=== PATIENT | female | born 1970 | race Caucasian/White ===

== ENCOUNTER 2017-06-26 19:38 | Outpatient (CLI) | payer MEDICARE, MEDICAID ==
--- NOTE | 2017-06-26 22:18 | Ultrasound Preliminary Report ---
Exam: US Duplex Ext Veins Right IMPRESSION: 1. Negative for deep venous thrombosis at this time. 2. Lymphadenopathy. RADIA The above findings were discussed with Dr. Garcia by Dr. Harsha Perez at 22:16 hrs on 06/26/17. SITE ID: [id number]
--- NOTE | 2017-06-26 22:20 | Ultrasound Report ---
EXAM: RIGHT UPPER EXTREMITY VENOUS ULTRASOUND EXAM DATE: 06/26/2017 08:56 PM. CLINICAL HISTORY: Metastatic breast cancer. Right upper extremity swelling. COMPARISON: None. TECHNIQUE: Real-time sonographic vascular imaging was performed by the enrollment processor through the upper extremity utilizing both color-flow and Doppler spectral analysis. Multiple ambulatory services representative static ani ges were saved for review. FINDINGS: Internal Jugular Vein (IJV): Normal. Subclavian Vein (SCV): Normal. Axillary Vein : Normal. Cephalic Vein (superficial vein): Normal. Basilic Vein (superficial vein): Normal. Brachial Vein: Normal. Contralateral Side: Subclavian Vein: Not evaluated. Other: Multiple irregular, hypoechoic, enlarged lymph nodes in the right neck, right axilla, and righ t supraclavicular region. These measure as much as 1.6 x 1.8 cm. IMPRESSION: 1. Negative for deep venous thrombosis at this time. 2. Lymphadenopathy. RADIA The above findings were discussed with Dr. Garcia by Dr. Harsha Perez at 22:16 hrs on 06/26/17. Referring Provider Line: [phone] SITE ID: [id number]
== END 2017-06-26 19:39 | disposition home or self-care (01) ==
LOC: DI 19:38
PROVIDERS: ATTEND Physician Assistant Medical
DX: R59.0 Localized enlarged lymph nodes (principal)

== ENCOUNTER 2017-07-23 17:44 | Inpatient (IN) | payer MEDICARE, MEDICAID ==
--- NOTE | 2017-07-23 19:43 | ED Physician Documentation ---
PD HPI SKIN - Stated complaint Stated Complaint: R ARM LUMP - Chief complaint Chief Complaint: Ext Problem - History obtained from History obtained from: Patient - History of Present Illness Timing - onset: Yesterday Timing - duration: Days (2) Timing - details: Gradual onset, Still present (worsened very quickly today though) Location: Chest, RUE Quality / character: Painful, Discolored (red), Swelling. No: Draining Associated symptoms: Myalgias. No: Fever, N/V/D Contributing factors: No: Recent illness Similar symptoms before: Has not had sx before Recently seen: Clinic (today) Review of Systems Constitutional: reports: Myalgias. denies: Fever, Chills Nose: denies: Rhinorrhea / runny nose, Congestion Throat: denies: Sore throat Respiratory: denies: Cough GI: denies: Abdominal Pain, Nausea, Vomiting, Diarrhea Musculoskeletal: reports: Extremity swelling (right arm lymphedema chronically since breast/axillary surgery for breast cancer.) Neurologic: denies: Focal weakness, Numbness Immunocompromised: reports: Immunocompromised (hormonal chemo at this point; no immune suppressants per se for past 4-5 months.) PD PAST MEDICAL HISTORY - Past Medical History Past Medical History: Yes Respiratory: None Neuro: None Endocrine/Autoimmune: None 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 Other Past Medical History: breast cancer with mets - Past Surgical History Past Surgical History: Yes - Present Medications Home Medications: Ambulatory Orders Medication Instructions Recorded Confirmed Everolimus [Afinitor] 10 mg PO DAILY 07/23/17 07/23/17 Exemestane 25 mg PO DAILY 07/23/17 07/23/17 Lisinopril 40 mg PO DAILY 07/23/17 07/23/17 Trastuzumab [Herceptin] 150 mg IV 07/23/17 - Allergies Allergies/Adverse Reactions: Allergies Allergy/AdvReac Type Severity Reaction Status Date / Time No Known Drug Allergies Allergy Verified 07/23/17 17:49 - Social History Does the pt smoke?: No Smoking Status: Never smoker Does the pt drink ETOH?: No Does the pt have substance abuse?: No - Family History Family history: reports: Non contributory PD ED PE NORMAL - Vitals Vital signs reviewed: Yes - General General: Alert and oriented X 3, No acute distress, Well developed/nourished - HEENT HEENT: Moist mucous membranes, Pharynx benign - Neck Neck: Supple, no meningeal sign, No adenopathy - Cardiac Cardiac: RRR, No murmur - Respiratory Respiratory: Clear bilaterally - Abdomen Abdomen: Soft, Non tender - Derm Derm: Warm and dry, Other (right arm with edema c/w lymphedema from shoulder down to fingers. There is marked redness c/w cellulitis right upper arm medially from elbow flexion up to anterior shoulder and axillary area, then to anterolateral chest wall and right breast. There is firmmness of tissue right breast which she says is c/w her tumor. No obvious fluctuance area to denote abscess. ) - Extremities Extremities: No tenderness to palpate, Normal ROM s pain - Neuro Neuro: Alert and oriented X 3, No motor deficit, No sensory deficit, Normal speech Results - Vitals Vitals: Vital Signs - 24 hr 07/23/17 07/23/17 07/23/17 17:46 21:05 22:59 Temperature 36.1 C L 36.9 C 36.6 C Heart Rate 102 H 98 98 Respiratory 18 16 20 Rate Blood Pressure 144/91 H 148/64 H 158/79 H O2 Saturation 99 99 100 Oxygen O2 Source Room air - Labs Labs: Laboratory Tests 07/23/17 07/23/17 07/23/17 20:47 21:24 21:24 WBC 4.4 L RBC 4.60 Hgb 11.5 L Hct 35.5 L MCV 77.1 L MCH 25.0 L MCHC 32.5 RDW 17.1 H Plt Count 103 L MPV 8.3 Neut # 3.6 Lymph # 0.5 L Dixon # 0.3 Eos # 0.0 Baso # 0.1 Absolute Nucleated RBC 0.01 Nucleated RBCs 0.2 ESR 68 H Sodium 134 L Potassium 2.9 L Chloride 99 L Carbon Dioxide 25 Anion Gap 10.0 BUN 14 Creatinine 0.9 Estimated GFR (MDRD) 67 L Glucose 332 H Calcium 8.7 Total Bilirubin 0.9 AST 36 ALT 74 H Alkaline Phosphatase 85 Total Creatine Kinase 111 Total Protein 7.0 Albumin 3.8 Globulin 3.2 Albumin/Globulin Ratio 1.2 Lipase 43 PD MEDICAL DECISION MAKING - ED course Complexity details: reviewed results, considered differential, d/w patient, d/w transportation consultant (Hospitalist) Departure - Departure Disposition: [facility] DC/Xfer Clinical Impression: Cellulitis of chest wall, Cellulitis of right arm, Lymphedema of right arm, Hypokalemia Condition: Stable Record reviewed to determine appropriate education?: Yes
[2017-07-23] MEDS ORDERED: VANCOMYCIN INJ 1 GM in SODIUM CHLORIDE 0.9% 250 ML IV STA (20:47)
[2017-07-23] MEDS ORDERED: SODIUM CHLORIDE 0.9% 1,000 ML IV ONE (20:47)
[2017-07-23] MEDS ORDERED: ceFAZolin 2 GM/50 ML 50 ML IV ONE ×2 (20:47→21:21)
[2017-07-23] MEDS ORDERED: VANCOMYCIN 1 GM VIAL ONE (21:21)
[2017-07-23 21:37] LABS: BASOPHILS # (AUTO) 0.1 10^3/uL (0.0-0.1); BASOPHILS % (AUTO) 1.4 %; HCT - HEMATOCRIT 35.5 % (37.0-47.0); HGB - HEMOGLOBIN 11.5 g/dL (12.0-16.0); LYMPHOCYTES # (AUTO) 0.5 10^3/uL (1.5-3.5); LYMPHOCYTES % (AUTO) 10.3 %; MEAN CORPUSCULAR HGB CONC 32.5 g/dL (32.0-36.0); MEAN CORPUSCULAR VOLUME 77.1 fL (81.0-99.0); MEAN PLATELET VOLUME 8.3 fL (7.9-10.8); MONOCYTES # (AUTO) 0.3 10^3/uL (0.0-1.0); MONOCYTES % (AUTO) 6.4 %; NEUTROPHILS # (AUTO) 3.6 10^3/uL (1.5-6.6); NEUTROPHILS % (AUTO) 80.9 %; NUCLEATED RED BLOOD CELLS AUTO 0.2 /100WBC; RED CELL DISTRIBUTION WIDTH 17.1 % (12.0-15.0); UNCORRECTED WHITE BLOOD COUNT 4.4 x10^3/uL; WHITE BLOOD COUNT 4.4 x10^3/uL (4.8-10.8)
[2017-07-23 21:45] LABS: ALBUMIN/GLOBULIN RATIO 1.2 (1.0-2.2); BILIRUBIN,TOTAL 0.9 mg/dL (0.2-1.0); CALCIUM 8.7 mg/dL (8.5-10.3); CREATININE 0.9 mg/dL (0.4-1.0); POTASSIUM 2.9 mmol/L (3.5-5.0)
[2017-07-23] MEDS ORDERED: POTASSIUM BICARB 25 MEQ TABLET PO STA (22:42)
[2017-07-23] MEDS ORDERED: POTASSIUM CHLOR 10 MEQ/100 ML 100 ML IV ONE (22:42)
[2017-07-23] MEDS ORDERED: IOPAMIDOL-300 100 ML VIAL ONE (23:08)
[2017-07-23] MEDS ORDERED: POTASSIUM BICARB 25 MEQ TABLET PO ONE (23:15)
[2017-07-23] MEDS ORDERED: IOPAMIDOL-300 100 ML VIAL IVP ONE (23:43)
--- NOTE | 2017-07-24 00:01 | CT Preliminary Report ---
Exam: CT Chest W/ IMPRESSION: 1. Mildly lobular advanced skin thickening of the right breast with multiple breast nodules, right ax illary lymphadenopathy, and with medial thickening extending posterior to the sternum and across the midline. 2. No sign of bone invasion, abscess, or fluid collection. 3. Splenomegaly. RADIA SITE ID: [id number]
--- NOTE | 2017-07-24 00:04 | CT Report ---
EXAM: CT CHEST EXAM DATE: 07/23/2017 11:48 PM. CLINICAL HISTORY: Right chest cellulitis/tumor. Concern for abscess. COMPARISONS: None. TECHNIQUE: Routine helical CT imaging was performed through the chest. IV contrast: 100 cc of Isovue- 300. Reconstructions: Coronal and sagittal. In accordance with CT protocol optimization, one or more of the following dose reduction techniques w ere utilized for this exam: automated exposure control, adjustment of mA and/or KV based on patient s ize, or use of iterative reconstructive technique. FINDINGS: Lungs/Pleura: No nodules, bronchial thickening, consolidation, or edema. Pulmonary vasculature is nor mal. No pericardial or pleural effusion. No pneumothorax. Mediastinum: Normal. No adenopathy or masses. The heart and great vessels are normal. Bones: Unremarkable. Visualized Abdomen: Splenomegaly noted. Other: Right axillary adenopathy, largest 3.2 x 3.8 cm. Diffuse irregular right breast skin thickenin g, with multiple right breast nodules. Thickening extends across the midline and extends posteriorly to abut the sternum. Subcutaneous nodule to the right of midline inferior to the breast 1.7 cm size. No sign of bone invasion. No fluid collection to suggest abscess. IMPRESSION: 1. Mildly lobular advanced skin thickening of the right breast with multiple breast nodules, right ax illary lymphadenopathy, and with medial thickening extending posterior to the sternum and across the midline. 2. No sign of bone invasion, abscess, or fluid collection. 3. Splenomegaly. RADIA Referring Provider Line: [phone] SITE ID: [id number]
[2017-07-24] MEDS ORDERED: POTASSIUM CHLOR 10 MEQ/100 ML 100 ML IV SCH (00:12)
[2017-07-24] MEDS ORDERED: POTASSIUM CHLORIDE 20 MEQ TABLET PO SCH (00:12)
[2017-07-24] MEDS ORDERED: ACETAMINOPHEN 325 MG TABLET PO PRN (00:14)
[2017-07-24] MEDS ORDERED: SODIUM CHLORIDE FLUSH 0.9% 10 ML SYRINGE IVP PRN (00:14)
[2017-07-24] MEDS ORDERED: ZOLPIDEM 5 MG TABLET PO PRN (00:14)
[2017-07-24] MEDS ORDERED: MORPHINE 2 MG/ML SYRINGE IVP PRN (00:14)
[2017-07-24] MEDS ORDERED: ONDANSETRON 4 MG/2 ML VIAL IVP PRN (00:14)
[2017-07-24] MEDS: oxyCODONE 5 MG TABLET PO PRN ×4 (01:23→17:58)
[2017-07-24] MEDS: PIPERACILLIN/TAZOBACTAM 3.375 GM in SODIUM CHLORIDE 0.9% MINIBAG 100 ML IV SCH ×4 (01:45→18:01)
--- NOTE | 2017-07-24 01:46 | HISTORY & PHYSICAL EXAMINATION ---
DATE OF ADMISSION: 07/24/2017 Please note that I saw the patient and completed history and physical prior to midnight. CHIEF COMPLAINT: Sent by the oncologist with right arm cellulitis. HISTORY OF PRESENT ILLNESS: The patient is a pleasant 46-year-old white female with past medical history of advanced metastatic breast cancer which metastasized to the bone, in particular patient has a pathologic left femoral fracture requiring femoral ifeanyi placement. She has metastatic lesions in the ribs and in the pelvic bones as well. Her disease is complicated by a necrotic ulcerating tumor mass on the right side of her chest. She does have axillary lymphadenopathy and chronic right arm lymphedema. The patient was diagnosed with the cancer about 4-1/2 years ago and since then she had received chemotherapy, hormone therapy and radiation therapy as well. Most recently she had been on hormone therapy and radiation is planned. From what she tells me it seems that she is on a chemotherapy holiday. The patient was in her usual state of health up to the morning of 07/23/2017. After she woke up, she noticed that her right arm was much more swollen than usual. It was painful and inflamed, erythematous. Hot to the touch. She did not have fever, but did have chills. She had nausea as well. She has some chronic chemotherapy-related rash like lesions on her abdominal wall which did not change. She does have the above-mentioned ulcerating tumor mass on her chest wall. She describes that she uses metronidazole sprinkles on it, but she does not take any oral antibiotic and she has not taken antibiotics from what she remembers. She was told that the chest wounds are secondary to the necrotic tumor tissue but were not infected. She did receive wound care in the past but most recently had been performing her own wound care. Upon presentation to the ER, the patient was found with obvious right arm cellulitis and the above-mentioned necrotic tumor mass on her chest. She underwent CT scan which did not show drainable collection or abscess. She had laboratory abnormalities, which included pancytopenia, hypokalemia with potassium of 2.9 and hyperglycemia with glucose of 332. PAST MEDICAL HISTORY: 1. Hypertension, on lisinopril. 2. Pancytopenia secondary to chemotherapy. 3. History of anemia, even before tumor diagnosis and chemotherapy the patient was anemic. 4. A complicated history of metastatic breast cancer. Please see details listed above at History of Present Illness. 5. Recent history of hyperglycemia. The patient tells me that one of the chemotherapy agents she was receiving causes hyperglycemia. She does not carry the diagnosis of diabetes. OUTPATIENT MEDICATIONS: Included lisinopril, everolimus, and exemestane. ALLERGIES: NO KNOWN DRUG ALLERGIES. SOCIAL HISTORY: The patient does not smoke, does not drink. CODE STATUS IS FULL CODE. FAMILY HISTORY: Negative for breast cancer, positive for hemophilia. REVIEW OF SYSTEMS: Please see pertinent positives listed above at History of Present illness. The patient did not report additional complaint on the 12- point review. PHYSICAL EXAMINATION: VITAL SIGNS: Temperature 36.9, heart rate between 80 and 100, blood pressure 140 /80, oxygen saturation 100% on room air, respiratory rate between 16 and 20. GENERAL: The patient is a well developed young female who was not in distress. SKIN: Extensive necrotic mass on the middle of the chest extending to the right side and extensive right arm cellulitis involving the entire arm with significant right arm lymphedema. NEURO: Neurologically alert, oriented, nonfocal. PSYCH: Cooperative. HEART: S1, S2. No pathologic murmur. RESPIRATORY: Clear to auscultation bilaterally. ABDOMEN: Obese, benign. Skin rash on the abdominal wall. Bowel tones present. MUSCULOSKELETAL: Obesity. LYMPH: Right arm lymphedema. ASSESSMENT: 1. Acute right arm cellulitis. 2. Chronic right arm lymphedema; however, recently getting worse. The patient has axillary lymphadenopathy and right-sided breast cancer. 3. Hypokalemia. 4. Hyperglycemia. 5. Pancytopenia, likely secondary to chemotherapy. 6. Immunocompromised status secondary to advanced cancer and recent chemotherapy. 7. Ulcerating tumor mass on the chest wall. Will require wound care, could be infected as well. PLAN AND ORDERS: The patient is getting admitted under inpatient status, she has significant laboratory abnormalities, plus she has impressive cellulitis and will require IV antibiotic therapy. Given her immunocompromised status she has risk to get worse if she is not treated promptly and broadly. Zosyn. MRSA screen, if positive will give vancomycin. Of note, the patient did receive 1 dose of vancomycin in the ER. Wound care, wound cultures. Regarding hyperglycemia, will start coverage on insulin sliding scale, diabetic diet and will check hemoglobin A1c. Replace potassium, both orally and IV. Continue hormone therapy for breast cancer. FULL CODE. DVT prophylaxis with Venodyne boots, the patient has thrombocytopenia and she does have some bleeding risk given the ulcerating tumor mass. Therefore for now I did not order pharmacologic prophylaxis. Time spent in the care of this patient was 60 minutes. JOB #: [id number] EXT JOB #:[id number] EMMA
[2017-07-24] MEDS: INSULIN ASPART 300 UNIT/3 ML PEN SUBQ SCH ×5 (02:18→20:46)
[2017-07-24] MEDS ORDERED: INSULIN ASPART 300 UNIT/3 ML PEN SUBQ ONE (02:19)
[2017-07-24 03:04] LABS: HEMOGLOBIN A1C 0.92 g/dL
[2017-07-24] MEDS: SODIUM CHLORIDE FLUSH 0.9% 10 ML SYRINGE IVP SCH ×3 (05:24→16:27)
[2017-07-24 06:08] LABS: CALCIUM 8.1 mg/dL (8.5-10.3); CREATININE 0.8 mg/dL (0.4-1.0); POTASSIUM 3.4 mmol/L (3.5-5.0)
[2017-07-24] MEDS: PANTOPRAZOLE 40 MG TABLET PO SCH (06:51)
[2017-07-24] MEDS: LISINOPRIL 20 MG TABLET PO SCH (08:14)
[2017-07-24] MEDS: POLYETHYLENE GLYCOL 3350 17 GM PACKET PO SCH (08:14)
--- NOTE | 2017-07-24 08:54 | PROVIDER PROGRESS NOTE ---
Subjective - Prog Note Date Prog Note Date: 07/24/17 Prog Note Time: 08:54 - Subjective Pt reports feeling: No change Subjective: Patient was seen at bedside and was better today. she has friends at bedside and is feeling better. no nausea and the pain is manageable. She is receiving antibiotics IV. She is getting oral narcotic pain medications that is about 4/ 10 and controlled well.She had no events overnight. Has some mild chest discomfort with palpation over the right breast and axilla. right arm is painful from the hand to axilla. She can bend fingers on right hand but not close fist. She has had no difficulty with urination or bowel habits Current Medications - Current Medications Current Medications: Active Medications Generic Name Dose Route Start Last Admin Trade Name Freq PRN Reason Stop Dose Admin Acetaminophen 650 mg 07/24/17 00:14 Tylenol PO Q4HR PRN Pain 1 to 4 Piperacillin Sod/Tazobactam 100 mls @ 200 mls/hr 07/24/17 01:00 07/24/17 06:51 Sod 3.375 gm/ Sodium Chloride IV 200 mls/hr Q6H KILO Administration Insulin Aspart 1 - 5 unit 07/24/17 08:00 07/24/17 08:12 Novolog SUBQ 4 unit 0800,1200,1700,2100 KILO Administration Protocol Lisinopril 40 mg 07/24/17 09:00 07/24/17 08:14 Zestril PO 40 mg DAILY KILO Administration Morphine Sulfate 4 mg 07/24/17 00:14 Morphine IVP Q4HR PRN Pain 8 to 10 Ondansetron HCl 4 mg 07/24/17 00:14 Zofran Inj IVP Q6HR PRN Nausea / Vomiting Oxycodone HCl 5 mg 07/24/17 00:14 07/24/17 10:37 Roxicodone PO 5 mg Q4HR PRN Administration Pain 5 to 7 Pantoprazole Sodium 40 mg 07/24/17 07:00 07/24/17 06:51 Protonix PO 40 mg QDAC KILO Administration Everolimus 10mg Tab 1 each 07/24/17 12:00 PO 1200 KILO Exemastone 25mg Tab 1 each 07/24/17 12:00 PO 1200 KILO Polyethylene Glycol 17 gm 07/24/17 09:00 07/24/17 08:14 Miralax PO Not Given DAILY KILO Sodium Chloride 10 ml 07/24/17 00:14 Normal Saline Flush 0.9% IVP PRN PRN NEEDED PER PROVIDER ORDERS Sodium Chloride 10 ml 07/24/17 06:00 07/24/17 05:24 Normal Saline Flush 0.9% IVP 10 ml Q8HR KILO Administration Sodium Phosphate 250 mg 07/24/17 12:00 K-Phos Neutral PO TIDWM KILO Zolpidem Tartrate 5 mg 07/24/17 00:14 Ambien PO QPM PRN Insomnia Everolimus [Afinitor] 10 mg PO DAILY 07/23/17 Exemestane 25 mg PO DAILY 07/23/17 Lisinopril 40 mg PO DAILY 07/23/17 Trastuzumab [Herceptin] 150 mg IV UD 07/23/17 Objective - Vital Signs/Intake & Output Reviewed Vital Signs: Yes Vital Signs: Vital Signs x48h Temp Pulse Pulse Resp BP Pulse Ox 07/24/17 07:58 37.1 C 93 17 136/60 H 98 07/24/17 00:58 37.1 C 88 16 145/71 H 100 Intake & Output: Intake & Output 07/23/17 07/24/17 07/24/17 23:59 07:59 15:59 Intake Total 1000 1005 Balance 1000 1005 - Objective General Appearance: positive: No acute distress, Alert Eyes Bilateral: positive: Normal inspection, PERRL, EOMI ENT: positive: ENT inspection nml, Pharynx nml, No signs of dehydration Neck: positive: Thyroid nml, No JVD, Trachea midline, Other (port to left upper chest and clean dry dressing over wound to the right upper chest/neck wall) Respiratory: positive: Chest non-tender, No respiratory distress Cardiovascular: positive: Regular rate & rhythm, No murmur, No gallop Abdomen: positive: Non-tender, No organomegaly, Nml bowel sounds, No distention. negative: Guarding, Rebound Rectal: positive: Non-tender Back: positive: Nml inspection Skin: positive: Other (rash to upper right extremity with edema and erythema) Extremities: positive: Full ROM, Other (edema to right arm from fingers to axillary region) Neurologic/Psychiatric: positive: Oriented x3, CN's nml (2-12), Motor nml, Sensation nml, Mood/affect nml Comments/Other: Warm and dry, Other (right arm with edema c/w lymphedema from shoulder down to fingers. There is marked redness c/w cellulitis right upper arm medially from elbow flexion up to anterior shoulder and axillary area, then to anterolateral chest wall and right breast. There is firmmness of tissue right breast which she says is c/w her tumor. No obvious fluctuance area to denote abscess. ) - Lab Results Fish Bones: 07/23/17 21:24 07/24/17 05:35 Other Labs: Lab Results x24hrs 07/24/17 07/24/17 07/24/17 Range/Units 07:33 05:35 01:23 Sodium 134 L (135-145) mmol/L Potassium 3.4 L (3.5-5.0) mmol/L Chloride 103 (101-111) mmol/L Carbon Dioxide 24 (21-32) mmol/L Anion Gap 7.0 (6-13) BUN 12 (6-20) mg/dL Creatinine 0.8 (0.4-1.0) mg/dL Estimated GFR (MDRD) 77 L (>89) Glucose 289 H (70-100) mg/dL POC Whole Bld Glucose 283 H 340 H (70 - 100) mg/dL Calcium 8.1 L (8.5-10.3) mg/dL Phosphorus 2.0 L (2.5-4.6) mg/dL Albumin 3.1 L (3.2-5.5) g/dL - Other Results/Comments Other Results/Comments: patient will need another 24-48 hours of treatment inpatient with IV medicaitons and high risk for toxicity. Time spent with patient was 45 minutes for assessment and planning Assessment/Plan - Problem List (1) Cellulitis of chest wall Impression: acute. continue to monitor and continue on antibiotic therapy with IV Zosyn and will stop Vancomycin since patient is not MRSA positive. continue with home dosage of pain medications. blood cultures pending. elevate arm and cold compressed for swelling. (2) Hyperglycemia, drug-induced Impression: acute with metastatic right breast disease. continue to monitor with daily glucose monitoring ACHS and diabetic diet. A1C was 9.8. sliding scale insulin with meals and lantus 10 units QPM ordered. (3) Hypokalemia Impression: acute. monitor electrolytes daily and replace. IVF NS for gentle hydration. (4) Lymphedema of right arm Impression: acute with metastatic right breast disease with lymph node involvement. monitor CBC daily with labs and electrolytes. continue to monitor and continue on antibiotic therapy with IV Zosyn and will stop Vancomycin since patient is not MRSA positive. continue with home dosage of pain medications. blood cultures pending. elevate arm and cold compressed for swelling. (5) Acute hyponatremia Impression: acute. continue to monitor electrolytes daily with lab draws. IVF NS for gentle hydration. (6) Morbid obesity with BMI of 40.0-44.9, adult Impression: chronic. with acute lymphadema to right upper arm. continue to monitor weight daily. patient is on a medication for the breast cancer that causes elevated blood glucose and increased weight. sliding scale insulin and diabetic diet ordered
[2017-07-24] MEDS: NEUTRA-PHOS 250 MG TABLET PO SCH ×2 (12:16→17:47)
[2017-07-24] MEDS: EXEMESTANE 25 MG PO SCH (12:17)
[2017-07-24] MEDS: EVEROLIMUS 10 MG PO SCH (12:17)
[2017-07-24] MEDS: INSULIN GLARGINE 300 UNIT/3 ML PEN SUBQ SCH (20:46)
[2017-07-25] MEDS: PIPERACILLIN/TAZOBACTAM 3.375 GM in SODIUM CHLORIDE 0.9% MINIBAG 100 ML IV SCH ×4 (01:06→18:13)
[2017-07-25] MEDS: oxyCODONE 5 MG TABLET PO PRN ×3 (01:06→19:31)
[2017-07-25 06:19] LABS: BASOPHILS % (AUTO) 0.8 %; EOSINOPHILS # (AUTO) 0.1 10^3/uL (0.0-0.7); EOSINOPHILS % (AUTO) 3.7 %; HCT - HEMATOCRIT 29.5 % (37.0-47.0); HGB - HEMOGLOBIN 9.6 g/dL (12.0-16.0); LYMPHOCYTES # (AUTO) 0.5 10^3/uL (1.5-3.5); LYMPHOCYTES % (AUTO) 20.5 %; MEAN CORPUSCULAR HEMOGLOBIN 24.9 pg (27.0-31.0); MEAN CORPUSCULAR HGB CONC 32.6 g/dL (32.0-36.0); MEAN CORPUSCULAR VOLUME 76.6 fL (81.0-99.0); MEAN PLATELET VOLUME 8.4 fL (7.9-10.8); MONOCYTES # (AUTO) 0.3 10^3/uL (0.0-1.0); NEUTROPHILS # (AUTO) 1.7 10^3/uL (1.5-6.6); RED BLOOD COUNT 3.86 10^6/uL (4.20-5.40); UNCORRECTED WHITE BLOOD COUNT 2.6 x10^3/uL; WHITE BLOOD COUNT 2.6 x10^3/uL (4.8-10.8)
[2017-07-25 06:27] LABS: ALBUMIN/GLOBULIN RATIO 1.1 (1.0-2.2); CALCIUM 7.9 mg/dL (8.5-10.3); CREATININE 0.8 mg/dL (0.4-1.0); PHOSPHORUS 3.1 mg/dL (2.5-4.6); TOTAL PROTEIN 5.4 g/dL (6.7-8.2)
[2017-07-25 06:49] LABS: PLATELET ESTIMATE, MANUAL DECREASED (<130,000) (NORMAL); PLATELET MORPHOLOGY NORMAL APPEARANCE (NORMAL)
[2017-07-25] MEDS: SODIUM CHLORIDE FLUSH 0.9% 10 ML SYRINGE IVP SCH ×3 (06:59→21:22)
[2017-07-25] MEDS: PANTOPRAZOLE 40 MG TABLET PO SCH (06:59)
[2017-07-25] MEDS: NEUTRA-PHOS 250 MG TABLET PO SCH ×2 (08:22→12:00)
[2017-07-25] MEDS: LISINOPRIL 20 MG TABLET PO SCH (08:22)
[2017-07-25] MEDS: POLYETHYLENE GLYCOL 3350 17 GM PACKET PO SCH (08:22)
[2017-07-25] MEDS: INSULIN ASPART 300 UNIT/3 ML PEN SUBQ SCH ×4 (08:23→21:20)
[2017-07-25] MEDS: EXEMESTANE 25 MG PO SCH (12:01)
[2017-07-25] MEDS: EVEROLIMUS 10 MG PO SCH (12:01)
--- NOTE | 2017-07-25 13:39 | PROVIDER PROGRESS NOTE ---
Subjective - Prog Note Date Prog Note Date: 07/25/17 Prog Note Time: 13:37 - Subjective Pt reports feeling: Improved Subjective: Patient seen at bedside for followup for cellulitis of right arm and axilla. She is in a good mood. arm is better and skin not as tight and swollen. she thinks the elevation has helped. The cold compresses did not help as much. She has no nausea or vomiting. pain has improved. she admits that she needs to be ambulating more and not laying in the bed. She has not had any chills or fever. no events overnight and slept ok. Current Medications - Current Medications Current Medications: Active Medications Generic Name Dose Route Start Last Admin Trade Name Freq PRN Reason Stop Dose Admin Acetaminophen 650 mg 07/24/17 00:14 Tylenol PO Q4HR PRN Pain 1 to 4 Cholecalciferol 5,000 unit 07/26/17 09:00 Vitamin D3 PO DAILY KILO Piperacillin Sod/Tazobactam 100 mls @ 200 mls/hr 07/24/17 01:00 07/25/17 12:08 Sod 3.375 gm/ Sodium Chloride IV 200 mls/hr Q6H KILO Administration Potassium Chloride/Sodium Chloride 1,000 mls @ 100 mls/hr 07/25/17 14:00 Normal Saline 0.9% W/40 Meq Kcl IV .Q10H KILO Insulin Aspart 0 unit 07/24/17 12:00 07/25/17 12:02 Novolog SUBQ 7 unit 0800,1200,1700,2100 KILO Administration Protocol Insulin Glargine 10 unit 07/24/17 21:00 07/24/17 20:46 Lantus Solostar SUBQ 10 unit QPM KILO Administration Insulin Glargine 5 unit 07/25/17 16:00 Lantus Solostar SUBQ AC KILO Lisinopril 40 mg 07/24/17 09:00 07/25/17 08:22 Zestril PO 40 mg DAILY KILO Administration Morphine Sulfate 4 mg 07/24/17 00:14 Morphine IVP Q4HR PRN Pain 8 to 10 Multivitamins/Minerals 1 tab 07/25/17 14:00 Theragran M PO DAILYWM KILO Ondansetron HCl 4 mg 07/24/17 00:14 Zofran Inj IVP Q6HR PRN Nausea / Vomiting Oxycodone HCl 5 mg 07/24/17 00:14 07/25/17 08:29 Roxicodone PO 5 mg Q4HR PRN Administration Pain 5 to 7 Pantoprazole Sodium 40 mg 07/24/17 07:00 07/25/17 06:59 Protonix PO 40 mg QDAC KILO Administration Everolimus 10mg Tab 1 each 07/24/17 12:00 07/25/17 12:01 PO 1 each 1200 KILO Administration Exemastone 25mg Tab 1 each 07/24/17 12:00 07/25/17 12:01 PO 1 each 1200 KILO Administration Polyethylene Glycol 17 gm 07/24/17 09:00 07/25/17 08:22 Miralax PO Not Given DAILY KILO Potassium Chloride 20 meq 07/25/17 14:00 PO DAILYWM KILO Sodium Chloride 10 ml 07/24/17 00:14 07/25/17 01:06 Normal Saline Flush 0.9% IVP 10 ml PRN PRN Administration NEEDED PER PROVIDER ORDERS Sodium Chloride 10 ml 07/24/17 06:00 07/25/17 13:32 Normal Saline Flush 0.9% IVP Not Given Q8HR KILO Zolpidem Tartrate 5 mg 07/24/17 00:14 Ambien PO QPM PRN Insomnia Everolimus [Afinitor] 10 mg PO DAILY 07/23/17 Exemestane 25 mg PO DAILY 07/23/17 Lisinopril 40 mg PO DAILY 07/23/17 Trastuzumab [Herceptin] 150 mg IV UD 07/23/17 Objective - Vital Signs/Intake & Output Reviewed Vital Signs: Yes Vital Signs: Vital Signs x48h Temp Pulse Resp BP Pulse Ox 07/25/17 08:19 36.7 C 93 16 139/44 H 97 Intake & Output: Intake & Output 07/22/17 07/23/17 07/24/17 07/25/17 23:59 23:59 23:59 23:59 Intake Total 1777 1804 Balance 1777 1804 - Objective General Appearance: positive: No acute distress, Alert Eyes Bilateral: positive: Normal inspection, PERRL, EOMI ENT: positive: ENT inspection nml, Pharynx nml, No signs of dehydration Neck: positive: Nml inspection, Thyroid nml, No JVD, Trachea midline Respiratory: positive: Chest non-tender, No respiratory distress, Breath sounds nml Cardiovascular: positive: Regular rate & rhythm, No murmur, No gallop Abdomen: positive: Non-tender, No organomegaly, Nml bowel sounds, No distention Back: positive: Nml inspection. negative: CVA tenderness (R), CVA tenderness (L ) Skin: positive: Color nml, Warm, Dry, Other (right arm with improving edema and erythema. axilla is edematous. wound covered to right upper chest wall with clean dressing.) Extremities: positive: Non-tender, Full ROM (right arm edema improving) Neurologic/Psychiatric: positive: Oriented x3, CN's nml (2-12), Motor nml, Sensation nml, Mood/affect nml - Lab Results Fish Bones: 07/25/17 05:26 07/25/17 05:26 Other Labs: Lab Results x24hrs 07/25/17 07/25/17 07/25/17 Range/Units 11:35 07:37 05:26 WBC (4.8-10.8) x10^3/uL RBC (4.20-5.40) 10^6/uL Hgb (12.0-16.0) g/dL Hct (37.0-47.0) % MCV (81.0-99.0) fL MCH (27.0-31.0) pg MCHC (32.0-36.0) g/dL RDW (12.0-15.0) % Plt Count (130-450) 10^3/uL MPV (7.9-10.8) fL Neut # (1.5-6.6) 10^3/uL Lymph # (1.5-3.5) 10^3/uL Pike # (0.0-1.0) 10^3/uL Eos # (0.0-0.7) 10^3/uL Baso # (0.0-0.1) 10^3/uL Absolute Nucleated RBC x10^3/uL Nucleated RBCs /100WBC Manual Slide Review Platelet Estimate (NORMAL) Platelet Morphology (NORMAL) RBC Morph Micro Appear (NORMAL) Sodium 135 (135-145) mmol/L Potassium 3.0 L (3.5-5.0) mmol/L Chloride 104 (101-111) mmol/L Carbon Dioxide 25 (21-32) mmol/L Anion Gap 6.0 (6-13) BUN 10 (6-20) mg/dL Creatinine 0.8 (0.4-1.0) mg/dL Estimated GFR (MDRD) 77 L (>89) Glucose 203 H (70-100) mg/dL POC Whole Bld Glucose 301 H 208 H (70 - 100) mg/dL Calcium 7.9 L (8.5-10.3) mg/dL Phosphorus 3.1 (2.5-4.6) mg/dL Magnesium 2.0 (1.7-2.8) mg/dL Total Bilirubin 1.0 (0.2-1.0) mg/dL AST 25 (10-42) IU/L ALT 40 (10-60) IU/L Alkaline Phosphatase 59 (42-121) IU/L Total Protein 5.4 L (6.7-8.2) g/dL Albumin 2.8 L (3.2-5.5) g/dL Globulin 2.6 (2.1-4.2) g/dL Albumin/Globulin Ratio 1.1 (1.0-2.2) 07/25/17 07/24/17 07/24/17 Range/Units 05:26 20:34 16:34 WBC 2.6 L (4.8-10.8) x10^3/uL RBC 3.86 L (4.20-5.40) 10^6/uL Hgb 9.6 L (12.0-16.0) g/dL Hct 29.5 L (37.0-47.0) % MCV 76.6 L (81.0-99.0) fL MCH 24.9 L (27.0-31.0) pg MCHC 32.6 (32.0-36.0) g/dL RDW 17.0 H (12.0-15.0) % Plt Count 82 L (130-450) 10^3/uL MPV 8.4 (7.9-10.8) fL Neut # 1.7 (1.5-6.6) 10^3/uL Lymph # 0.5 L (1.5-3.5) 10^3/uL Pike # 0.3 (0.0-1.0) 10^3/uL Eos # 0.1 (0.0-0.7) 10^3/uL Baso # 0.0 (0.0-0.1) 10^3/uL Absolute Nucleated RBC 0.00 x10^3/uL Nucleated RBCs 0.0 /100WBC Manual Slide Review Indicated Platelet Estimate DECREASED (<130,000) (NORMAL) Platelet Morphology NORMAL APPEARANCE (NORMAL) RBC Morph Micro Appear NORMAL APPEARANCE (NORMAL) Sodium (135-145) mmol/L Potassium (3.5-5.0) mmol/L Chloride (101-111) mmol/L Carbon Dioxide (21-32) mmol/L Anion Gap (6-13) BUN (6-20) mg/dL Creatinine (0.4-1.0) mg/dL Estimated GFR (MDRD) (>89) Glucose (70-100) mg/dL POC Whole Bld Glucose 323 H 289 H (70 - 100) mg/dL Calcium (8.5-10.3) mg/dL Phosphorus (2.5-4.6) mg/dL Magnesium (1.7-2.8) mg/dL Total Bilirubin (0.2-1.0) mg/dL AST (10-42) IU/L ALT (10-60) IU/L Alkaline Phosphatase (42-121) IU/L Total Protein (6.7-8.2) g/dL Albumin (3.2-5.5) g/dL Globulin (2.1-4.2) g/dL Albumin/Globulin Ratio (1.0-2.2) - Other Results/Comments Other Results/Comments: Assessment/Plan - Problem List (1) Cellulitis of chest wall with metastatic right breast cancer Impression: acute. continue to monitor and continue on antibiotic therapy with IV Zosyn and will add back in the Vancomycin since patient shows wound culture with Staph aureus and sensitivities pending. continue with home dosage of pain medications. blood cultures still show no growth and are pending. elevate arm and cold compressed for swelling. (2) Hyperglycemia, drug-induced Impression: acute with metastatic right breast disease. continue to monitor with daily glucose monitoring ACHS and diabetic diet. A1C was 9.8. sliding scale insulin with meals and lantus 10 units QPM ordered and will add 5units in the morning since BG still >200 (3) Hypokalemia, unspecified Impression: acute. monitor electrolytes daily and replace. IVF NS with 40 meq KCL for gentle hydration and electrolyte replacement (4) Lymphedema of right arm Impression: acute with metastatic right breast disease with lymph node involvement. monitor CBC daily with labs and electrolytes. continue to monitor and continue on antibiotic therapy with IV Zosyn and IV Vancomycin. continue with home dosage of pain medications. blood cultures pending. elevate arm and cold compressed for swelling. (5) Acute hyponatremia, unspecified Impression: acute. continue to monitor electrolytes daily with lab draws. VF NS with 40 meq KCL for gentle hydration and electrolyte replacement. (6) Morbid obesity with BMI of 40.0-44.9, adult Impression: chronic. with acute lymphadema to right upper arm. continue to monitor weight daily. patient is on a medication for the breast cancer that causes elevated blood glucose and increased weight. sliding scale insulin and diabetic diet ordered. patient was seen by repeater operator
[2017-07-25] MEDS ORDERED: VANCOMYCIN WEIGHT BASED (PHA COMPOUNDING) IV SCH (14:00)
[2017-07-25] MEDS: MULTIVITAMIN W/MINERALS TABLET PO SCH (14:19)
[2017-07-25] MEDS: POTASSIUM CHLORIDE 20 MEQ/15 ML UDC PO SCH (14:20)
[2017-07-25] MEDS: NS W/40 MEQ KCL 1,000 ML IV SCH (14:21)
[2017-07-25] MEDS: VANCOMYCIN 1.5 GM/NS 500 ML 500 ML IV SCH (14:21)
[2017-07-25] MEDS ORDERED: INSULIN GLARGINE 300 UNIT/3 ML PEN SUBQ SCH (16:00)
[2017-07-25] MEDS: INSULIN GLARGINE 300 UNIT/3 ML PEN SUBQ SCH (21:20)
[2017-07-26] MEDS: oxyCODONE 5 MG TABLET PO PRN ×2 (00:43→06:44)
[2017-07-26] MEDS: PIPERACILLIN/TAZOBACTAM 3.375 GM in SODIUM CHLORIDE 0.9% MINIBAG 100 ML IV SCH ×2 (01:14→06:32)
[2017-07-26] MEDS: NS W/40 MEQ KCL 1,000 ML IV SCH ×2 (01:15→06:32)
[2017-07-26] MEDS: VANCOMYCIN 1.5 GM/NS 500 ML 500 ML IV SCH (02:03)
[2017-07-26 05:04] LABS: ALBUMIN/GLOBULIN RATIO 1.1 (1.0-2.2); BILIRUBIN,TOTAL 0.8 mg/dL (0.2-1.0); CALCIUM 7.9 mg/dL (8.5-10.3); CREATININE 0.8 mg/dL (0.4-1.0); POTASSIUM 3.1 mmol/L (3.5-5.0); TOTAL PROTEIN 5.8 g/dL (6.7-8.2)
[2017-07-26 06:08] LABS: EOSINOPHILS % (AUTO) 4.3 %; HCT - HEMATOCRIT 29.5 % (37.0-47.0); HGB - HEMOGLOBIN 9.6 g/dL (12.0-16.0); LYMPHOCYTES % (AUTO) 22.7 %; MEAN CORPUSCULAR HEMOGLOBIN 24.9 pg (27.0-31.0); MEAN CORPUSCULAR HGB CONC 32.5 g/dL (32.0-36.0); MEAN CORPUSCULAR VOLUME 76.5 fL (81.0-99.0); MEAN PLATELET VOLUME 8.5 fL (7.9-10.8); MONOCYTES % (AUTO) 8.9 %; NEUTROPHILS % (AUTO) 63.1 %; RED BLOOD COUNT 3.86 10^6/uL (4.20-5.40); RED CELL DISTRIBUTION WIDTH 16.4 % (12.0-15.0); UNCORRECTED WHITE BLOOD COUNT 2.1 x10^3/uL; WHITE BLOOD COUNT 2.1 x10^3/uL (4.8-10.8)
[2017-07-26 06:27] LABS: BAND NEUTROPHILS % (MANUAL) 4 %; EOSINOPHILS % (MANUAL) 5 %; LYMPHOCYTES % (MANUAL) 18 %; NEUTROPHILS % (MANUAL) 68 %; NP AUTO DIFFERENTIAL? YES; NP MAN DIFFERENTIAL? NO; PLATELET ESTIMATE, MANUAL DECREASED (<130,000) (NORMAL); TOTAL CELLS COUNTED 100
[2017-07-26] MEDS: SODIUM CHLORIDE FLUSH 0.9% 10 ML SYRINGE IVP SCH (06:32)
[2017-07-26] MEDS: PANTOPRAZOLE 40 MG TABLET PO SCH (06:32)
[2017-07-26] MEDS ORDERED: INSULIN GLARGINE 300 UNIT/3 ML PEN SUBQ SCH (08:00)
[2017-07-26] MEDS: POLYETHYLENE GLYCOL 3350 17 GM PACKET PO SCH (08:09)
[2017-07-26] MEDS: POTASSIUM CHLORIDE 20 MEQ/15 ML UDC PO SCH (08:24)
[2017-07-26] MEDS: MULTIVITAMIN W/MINERALS TABLET PO SCH (08:24)
[2017-07-26] MEDS: LISINOPRIL 20 MG TABLET PO SCH (08:24)
[2017-07-26] MEDS: INSULIN ASPART 300 UNIT/3 ML PEN SUBQ SCH ×2 (08:25→12:19)
[2017-07-26 08:44] VITALS: BP 131/57
[2017-07-26] MEDS ORDERED: CHOLECALCIFEROL 5,000 UNIT CAPSULE PO SCH (09:00)
[2017-07-26] MEDS ORDERED: POTASSIUM CHLORIDE 20 MEQ TABLET PO SCH (12:00)
--- NOTE | 2017-07-26 12:08 | Discharge Plan ---
Discharge Plan Disposition: Home, Self Care Condition: Good Prescriptions: Potassium Chloride [K-Dur] 20 meq PO DAILYWM #15 tablet Insulin Glargine [Lantus Solostar] 10 unit SUBQ QPM #1 pen Insulin Glargine [Lantus Solostar] 5 unit SUBQ DAILYWM #1 pen Levofloxacin [Levaquin] 750 mg PO DAILY #7 tablet Multivitamin W/Minerals [Theragran M] 1 tab PO DAILYWM #15 tablet Diet: Diabetic (you will need to talk to your oncologist about the elevated blood glucose and you will need a follow up appointment at the [facility] for diabetic counseling.) Activity Restrictions: Activity as Tolerated Shower Restrictions: No Driving Restrictions: No Weight Bearing: Full Weight Instruction Topics: Hyperglycemia, Diabetes Resources, Blood Sugar Check Additional Instructions or Follow Up instructions: PLEASE CONTINUE TO TAKE ALL YOUR HOME MEDICATIONS PRESCRIBED. YOU HAVE BEEN GIVEN MEDICATIONS FOR INSULIN LANTUS AND NEED TO SEE THE [facility] REGARDING DIABETIC COUNSELING. YOUR HEMOGLOBIN A1C WAS 9.8. THIS CAN AFFECT YOUR WOUND AND HEALING. PLEASE CHECK YOUR BLOOD GLUCOSE WITH EACH MEAL. YOU HAVE BEEN GIVEN INFORMATION REGARDING DIABETIC MANAGEMENT. PLEASE CONTINUE TO GET WOUND CARE AND SEE YOUR ONCOLOGIST ON YOUR SCHEDULED APPOINTMENT. PLEASE EAT A NEUTROPENIC DIET AND WEAR A MASK IF YOU ARE OUT AROUND OTHERS. PLEASE GET PLENTY OF REST AND SLEEP AFTER BEING IN THE HOSPITAL. IT WILL TAKE TIME FOR YOUR BODY TO RECUPERATE PLEASE RETURN TO THE ER IF SYMPTOMS WORSEN AND CALL 911 IF YOU HAVE CHEST PAIN OR SHORTNESS OF BREATH NOT RESOLVING Follow-Up Care: [facility] - Diabetes Ed No Smoking: If you smoke, Please STOP! Call for help.
[2017-07-26] MEDS: EVEROLIMUS 10 MG PO SCH (12:20)
[2017-07-26] MEDS: EXEMESTANE 25 MG PO SCH (12:20)
--- NOTE | 2017-07-26 12:30 | DISCHARGE SUMMARY ---
"Discharge Summary Admit Date: 07/24/17 Discharge Date: 07/26/17 Discharging Provider: DOREEN APODACA Code Status: Attempt Resuscitation Condition at Discharge: Good Discharge Disposition: 01 Home, Self Care Discharge Facility Name: HOME - DIAGNOSES Admission Diagnoses: 1. ACUTE RIGHT UPPER ARM EDEMA WITH POSSIBLE CELLULITIS 2. CHRONIC RIGHT CHEST PAIN WITH METASTATIC RIGHT BREAST CANCER 3. OBESITY WITH BMI >40 MEDICATION INDUCED 4. CHRONIC PANCYTOPENIA FROM CHEMOTHERAPY 5. HYPERGLYCEMIA MEDICATION INDUCED, ACUTE ON CHRONIC 6. ACUTE ON CHRONIC ANEMIA OF CHRONIC DISEASE Discharge Diagnoses with Status of Each Condition: 1. ACUTE RIGHT UPPER ARM EDEMA WITH STAPH AUREUS AND GROUP STREP B CELLULITIS 2 CHRONIC RIGHT CHEST PAIN WITH METASTATIC RIGHT BREAST CANCER 3. OBESITY WITH BMI >40 MEDICATION INDUCED 4. CHRONIC PANCYTOPENIA FROM CHEMOTHERAPY 5. HYPERGLYCEMIA MEDICATION INDUCED, ACUTE ON CHRONIC 6. ACUTE ON CHRONIC ANEMIA OF CHRONIC DISEASE - HPI History of Present Illness: - History of Present Illness Timing - onset: Yesterday Timing - duration: Days (2) Timing - details: Gradual onset, Still present (worsened very quickly today though) Location: Chest, RUE Quality / character: Painful, Discolored (red), Swelling. No: Draining Associated symptoms: Myalgias. No: Fever, N/V/D Contributing factors: No: Recent illness Similar symptoms before: Has not had sx before Recently seen: Clinic (today) - CONSULTS | PROCEDURES Consultations: none Procedures: WOUND CULTURE STAPH AUREUS AND GROUP STREP B CELLULITIS - HOSPITAL COURSE Hospital Course: COURSE OF TREATMENT (1) Cellulitis of chest wall continued to monitor and continue on antibiotic therapy with IV Zosyn and will stop Vancomycin since patient is not MRSA positive. continued with home dosage of pain medications. blood cultures pending. elevate arm and cold compressed for swelling. (2) Hyperglycemia, drug-induced metastatic right breast disease. continued to monitor with daily glucose monitoring ACHS and diabetic diet. A1C was 9.8. sliding scale insulin with meals and lantus 10 units QPM ordered. (3) Hypokalemia monitored electrolytes daily and replaced. IVF NS for gentle hydration was given. (4) Lymphedema of right arm metastatic right breast disease with lymph node involvement. monitored CBC daily with labs and electrolytes. continued to monitor and continued on antibiotic therapy with IV Zosyn and will stopped Vancomycin since patient is not MRSA positive. continued with home dosage of pain medications. blood cultures pending. elevated arm and cold compressed for swelling. (5) Acute hyponatremia continued to monitor electrolytes daily with lab draws. IVF NS for gentle hydration. (6) Morbid obesity with BMI of 40.0-44.9, adult with acute lymphadema to right upper arm. continued to monitor weight daily. patient was on a medication for the breast cancer that causes elevated blood glucose and increased weight. sliding scale insulin and diabetic diet were ordered she was on Lovenox and SCD for DVT prophylaxis. - ALLERGIES Allergies/Adverse Reactions: Allergies Allergy/AdvReac Type Severity Reaction Status Date / Time No Known Drug Allergies Allergy Verified 07/23/17 17:49 - MEDICATIONS Home Medications: Ambulatory Orders Medication Instructions Recorded Confirmed Everolimus [Afinitor] 10 mg PO DAILY 07/23/17 07/23/17 Exemestane 25 mg PO DAILY 07/23/17 07/23/17 Lisinopril 40 mg PO DAILY 07/23/17 07/23/17 Trastuzumab [Herceptin] 150 mg IV UD 07/23/17 07/24/17 Insulin Glargine [Lantus Solostar] 5 unit SUBQ DAILYWM #1 pen 07/26/17 Insulin Glargine [Lantus Solostar] 10 unit SUBQ QPM #1 pen 07/26/17 Levofloxacin [Levaquin] 750 mg PO DAILY #7 tablet 07/26/17 Multivitamin W/Minerals [Theragran 1 tab PO DAILYWM #15 tablet 07/26/17 M] Potassium Chloride [K-Dur] 20 meq PO DAILYWM #15 tablet 07/26/17 - PHYSICAL EXAM AT DISCHARGE General Appearance: positive: No acute distress, Alert Eyes Bilateral: positive: Normal inspection, PERRL, EOMI ENT: positive: ENT inspection nml, Pharynx nml Neck: positive: Nml inspection, Thyroid nml, No JVD, Trachea midline Respiratory: positive: No respiratory distress, Other (TENDERNESS AROUND WOUND SITE AND AXILLA RIGHT SIDE) Cardiovascular: positive: Regular rate & rhythm, No murmur, No gallop Peripheral Pulses: positive: 2+ Abdomen: positive: Non-tender, No organomegaly, Nml bowel sounds, No distention Back: positive: Nml inspection Skin: positive: Warm, Dry, Other (EDEMA AND ERYTHEMA IMPROVING TO RIGHT ARM) Extremities: positive: Non-tender, Full ROM, Nml appearance, No pedal edema Neurologic/Psychiatric: positive: Oriented x3, CN's nml (2-12), Motor nml, Sensation nml, Mood/affect nml - LABS Result Diagrams: 07/26/17 04:30 07/26/17 04:30 Other Lab Results: Abnormal Lab Results 07/24/17 07/24/17 07/25/17 16:34 20:34 05:26 WBC 2.6 x10^3/uL L x10^3/uL (4.8-10.8) RBC 3.86 10^6/uL L 10^6/uL (4.20-5.40) Hgb 9.6 g/dL L g/dL (12.0-16.0) Hct 29.5 % L % (37.0-47.0) MCV 76.6 fL L fL (81.0-99.0) MCH 24.9 pg L pg (27.0-31.0) RDW 17.0 % H % (12.0-15.0) Plt Count 82 10^3/uL L 10^3/uL (130-450) Lymph # 0.5 10^3/uL L 10^3/uL (1.5-3.5) Lymphocytes # (Manual) Potassium Estimated GFR (MDRD) Glucose POC Whole Bld Glucose 289 mg/dL H mg/dL 323 mg/dL H mg/dL (70 - 100) (70 - 100) Calcium Total Protein Albumin 07/25/17 07/25/17 07/25/17 05:26 07:37 11:35 WBC RBC Hgb Hct MCV MCH RDW Plt Count Lymph # Lymphocytes # (Manual) Potassium 3.0 mmol/L L mmol/L (3.5-5.0) Estimated GFR (MDRD) 77 L (>89) Glucose 203 mg/dL H mg/dL (70-100) POC Whole Bld Glucose 208 mg/dL H mg/dL 301 mg/dL H mg/dL (70 - 100) (70 - 100) Calcium 7.9 mg/dL L mg/dL (8.5-10.3) Total Protein 5.4 g/dL L g/dL (6.7-8.2) Albumin 2.8 g/dL L g/dL (3.2-5.5) 07/25/17 07/25/17 07/26/17 16:27 20:19 04:30 WBC 2.1 x10^3/uL L x10^3/uL (4.8-10.8) RBC 3.86 10^6/uL L 10^6/uL (4.20-5.40) Hgb 9.6 g/dL L g/dL (12.0-16.0) Hct 29.5 % L % (37.0-47.0) MCV 76.5 fL L fL (81.0-99.0) MCH 24.9 pg L pg (27.0-31.0) RDW 16.4 % H % (12.0-15.0) Plt Count 80 10^3/uL L 10^3/uL (130-450) Lymph # Lymphocytes # (Manual) 0.4 10^3/uL L 10^3/uL (1.5-3.5) Potassium Estimated GFR (MDRD) Glucose POC Whole Bld Glucose 314 mg/dL H mg/dL 332 mg/dL H mg/dL (70 - 100) (70 - 100) Calcium Total Protein Albumin 07/26/17 07/26/17 07/26/17 04:30 08:01 11:30 WBC RBC Hgb Hct MCV MCH RDW Plt Count Lymph # Lymphocytes # (Manual) Potassium 3.1 mmol/L L mmol/L (3.5-5.0) Estimated GFR (MDRD) 77 L (>89) Glucose 159 mg/dL H mg/dL (70-100) POC Whole Bld Glucose 154 mg/dL H mg/dL 257 mg/dL H mg/dL (70 - 100) (70 - 100) Calcium 7.9 mg/dL L mg/dL (8.5-10.3) Total Protein 5.8 g/dL L g/dL (6.7-8.2) Albumin 3.0 g/dL L g/dL (3.2-5.5) - DIAGNOSTIC IMAGING Diagnostic Imaging Results: Final report reviewed - FOLLOW UP Follow Up: PATIENT WAS INSTRUCTED TO SEE PCP WITHIN 1-3 DAYS OF DISCHARGE. SHE HAS AN APPOINTMENT WITH THE ONCOLOGIST IN FOUR DAYS. SHE IS BEING GIVEN ANTIBIOTIC LEVAQUIN FOR THE BACTERIAL INFECTION GROWN FROM WOUND CULTURE. SHE IS AFEBRILE AND IMPROVED AND WANTING TO BE ABLE TO GO HOME. SHE WAS GIVEN PRESCRIPTIONS FOR LEVAQUIN, LANTUS PEN AND POTASSIUM. SHE WAS GIVEN DIABETIC COUNSELING AND DIET INFORMATION - TIME SPENT Time Spent in Discharge (Minutes): 45 (PLANNING DISCHARGE AND ASSESSMENT)"
== END 2017-07-26 14:42 | disposition home or self-care (01) | DRG 602 ==
LOC: ED 17:44 → MS2 07-24 00:14
PROVIDERS: ADMIT Internal Medicine; ATTEND Nurse Practitioner
DX: L03.113 Cellulitis of right upper limb (principal); D61.810 Antineoplastic chemotherapy induced pancytopenia; L03.313 Cellulitis of chest wall; C50.919 Malignant neoplasm of unspecified site of unspecified female breast; C79.9 Secondary malignant neoplasm of unspecified site; Z68.41 Body mass index [BMI] 40.0-44.9, adult; E87.1 Hypo-osmolality and hyponatremia; C79.51 Secondary malignant neoplasm of bone; E87.6 Hypokalemia; B95.61 Methicillin susceptible Staphylococcus aureus infection as the cause of diseases classified elsewhere; B95.1 Streptococcus, group B, as the cause of diseases classified elsewhere; G89.3 Neoplasm related pain (acute) (chronic); C50.911 Malignant neoplasm of unspecified site of right female breast; T45.1X5D Adverse effect of antineoplastic and immunosuppressive drugs, subsequent encounter; I89.0 Lymphedema, not elsewhere classified; E66.01 Morbid (severe) obesity due to excess calories; I10 Essential (primary) hypertension; R73.9 Hyperglycemia, unspecified; R59.0 Localized enlarged lymph nodes; D63.8 Anemia in other chronic diseases classified elsewhere; Z79.899 Other long term (current) drug therapy
CPT/HCPCS: 36415; 71260; 80053; 80069; 82550; 83036; 83690; 83735; 84100; 85025; 85651; 87040; 87070; 87077; 87205; 87640; 96361; 96365; 96375; 99283; 99284

== ENCOUNTER 2017-09-02 16:56 | Emergency (ER) | payer MEDICARE, MEDICAID ==
--- NOTE | 2017-09-02 17:18 | ED Physician Documentation ---
History of Present Illness - Stated complaint Stated Complaint: LOWER BACK PX/FEMALE - Chief complaint Chief Complaint: General - History obtained from History obtained from: Patient - History of Present Illness Timing: Other (46-year-old woman with history of metastatic breast cancer originally diagnosed by me 5 years ago after a pathologic hip fracture. She is currently on hormone therapy, Or malaise. 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 - Past Surgical History Past Surgical History: Yes - Present Medications Home Medications: Ambulatory Orders Medication Instructions Recorded Confirmed Everolimus [Afinitor] 10 mg PO DAILY 07/23/17 09/02/17 Exemestane 25 mg PO DAILY 07/23/17 09/02/17 Lisinopril 40 mg PO DAILY 07/23/17 09/02/17 Trastuzumab [Herceptin] 150 mg IV UD 07/23/17 09/02/17 Insulin Glargine [Lantus Solostar] 5 unit SUBQ DAILYWM #1 pen 07/26/17 09/02/17 Insulin Glargine [Lantus Solostar] 10 unit SUBQ QPM #1 pen 07/26/17 09/02/17 Multivitamin W/Minerals [Theragran 1 tab PO DAILYWM #15 tablet 07/26/17 09/02/17 M] Potassium Citrate [Potassium 10 meq PO DAILY 10 Days #10 09/02/17 Citrate ER] tablet.er - Allergies Allergies/Adverse Reactions: Allergies Allergy/AdvReac Type Severity Reaction Status Date / Time No Known Drug Allergies Allergy Verified 09/02/17 17:01 - Social History Does the pt smoke?: No Smoking Status: Never smoker Does the pt drink ETOH?: No Does the pt have substance abuse?: No PD ED PE NORMAL - Vitals Vital signs reviewed: Yes - General General: Alert and oriented X 3, No acute distress - Cardiac Cardiac: RRR, No murmur - Respiratory Respiratory: No respiratory distress, Clear bilaterally - Abdomen Abdomen: Normal bowel sounds, Soft, Non tender - Back Back: No CVA TTP, No spinal TTP - Derm Derm: Other (Bandages on theRight upper chest wall where she has aggressive breast cancer) - Extremities Extremities: No edema, No calf tenderness / cord, Other (The patient has equal and normal Achilles and patellar reflexes bilaterally. Normal sensation in all areas of the legs. Patient denies saddle anesthesia. Normal strength in flexion-extension at the ankles, knees, and flexion of the hips.) - Neuro Neuro: Alert and oriented X 3, Normal speech - Psych Psych: Normal mood, Normal affect Results - Vitals Vitals: Vital Signs - 24 hr 09/02/17 09/02/17 16:58 18:51 Temperature 36.3 C L 36.9 C Heart Rate 94 88 Respiratory 16 18 Rate Blood Pressure 176/94 H 181/97 H O2 Saturation 99 100 Oxygen O2 Source Room air - Labs Labs: Laboratory Tests 09/02/17 09/02/17 09/02/17 17:07 17:30 17:30 WBC 3.2 L RBC 4.33 Hgb 10.4 L Hct 32.0 L MCV 73.9 L MCH 24.0 L MCHC 32.5 RDW 17.8 H Plt Count 109 L MPV 7.7 L Neut # 2.4 Lymph # 0.4 L Pepin # 0.3 Eos # 0.1 Baso # 0.0 Absolute Nucleated RBC 0.00 Nucleated RBC % 0.1 Sodium 137 Potassium 2.9 L Chloride 102 Carbon Dioxide 23 Anion Gap 12.0 BUN 10 Creatinine 0.9 Estimated GFR (MDRD) 67 L Glucose 280 H Calcium 8.7 Total Bilirubin 0.6 AST 71 H ALT 60 Alkaline Phosphatase 75 Total Protein 6.3 L Albumin 3.6 Globulin 2.7 Albumin/Globulin Ratio 1.3 Lipase 61 H HCG, Quant Urine Color DARK YELLOW Urine Clarity CLOUDY Urine pH 6.0 Ur Specific Earle >=1.030 H Urine Protein 30 H Urine Glucose (UA) 500 H Urine Ketones TRACE Urine Occult Blood MODERATE H Urine Nitrite NEGATIVE Urine Bilirubin NEGATIVE Urine Urobilinogen 0.2 (NORMAL) Ur Leukocyte Esterase TRACE H Urine RBC 0-5 Urine WBC 0-3 Ur Squamous Epith Cells FEW Squamous Urine Crystals 3-5 Calcium Oxalate Amorphous Sediment Rare Urine Bacteria Rare Urine Casts 6-10 Course Granular Urine Mucus Marked Strands Ur Microscopic Review INDICATED Urine Culture Comments INDICATED Urine HCG, Qual 09/02/17 17:30 WBC RBC Hgb Hct MCV MCH MCHC RDW Plt Count MPV Neut # Lymph # Pepin # Eos # Baso # Absolute Nucleated RBC Nucleated RBC % Sodium Potassium Chloride Carbon Dioxide Anion Gap BUN Creatinine Estimated GFR (MDRD) Glucose Calcium Total Bilirubin AST ALT Alkaline Phosphatase Total Protein Albumin Globulin Albumin/Globulin Ratio Lipase HCG, Quant 0.80 Urine Color Urine Clarity Urine pH Ur Specific Earle Urine Protein Urine Glucose (UA) Urine Ketones Urine Occult Blood Urine Nitrite Urine Bilirubin Urine Urobilinogen Ur Leukocyte Esterase Urine RBC Urine WBC Ur Squamous Epith Cells Urine Crystals Amorphous Sediment Urine Bacteria Urine Casts Urine Mucus Ur Microscopic Review Urine Culture Comments Urine HCG, Qual - Rads (name of study) CT KUB Radiology: EMP read contemporaneously (see MDM, ) PD MEDICAL DECISION MAKING - ED course ED course: 46-year-old woman with symptoms consistent with renal colic. CT I thought she had a left pelvic UPJ stone. However the radiologist felt this was a phlebolith. It was discussed with him by phone. The pelvic cyst was a well- known feature for the patient, she just had a tested and it was benign and it has been stable for quite some time and she also knew about the pulmonary nodules. She declined pain medication. Departure - Departure Disposition: 01 Home, Self Care Clinical Impression: Renal colic on left side Condition: Good Record reviewed to determine appropriate education?: Yes Instructions: ED Stone Renal W Colic Prescriptions: Potassium Citrate [Potassium Citrate ER] 10 meq PO DAILY 10 Days #10 tablet.er Comments: FOLLOWUP WITH YOUR DOCTOR IN 1 WEEK, RETURN IF WORSE RECHECK YOUR BLOOD PRESSURE IN 1 WEEK, IT WAS HIGH TODAY Discharge Date/Time: 09/02/17 18:51
[2017-09-02 17:32] LABS: UA w/ MICROSCOPIC CHARGE YES
[2017-09-02 17:33] LABS: BILIRUBIN,URINE NEGATIVE (NEGATIVE)
[2017-09-02 17:36] LABS: BASOPHILS % (AUTO) 1.3 %; EOSINOPHILS # (AUTO) 0.1 10^3/uL (0.0-0.7); EOSINOPHILS % (AUTO) 4.2 %; HGB - HEMOGLOBIN 10.4 g/dL (12.0-16.0); LYMPHOCYTES # (AUTO) 0.4 10^3/uL (1.5-3.5); LYMPHOCYTES % (AUTO) 12.2 %; MEAN CORPUSCULAR HGB CONC 32.5 g/dL (32.0-36.0); MEAN CORPUSCULAR VOLUME 73.9 fL (81.0-99.0); MEAN PLATELET VOLUME 7.7 fL (7.9-10.8); MONOCYTES # (AUTO) 0.3 10^3/uL (0.0-1.0); MONOCYTES % (AUTO) 8.1 %; NEUTROPHILS # (AUTO) 2.4 10^3/uL (1.5-6.6); NEUTROPHILS % (AUTO) 74.2 %; NUCLEATED RED BLOOD CELLS AUTO 0.1 /100WBC; RED BLOOD COUNT 4.33 10^6/uL (4.20-5.40); RED CELL DISTRIBUTION WIDTH 17.8 % (12.0-15.0); UNCORRECTED WHITE BLOOD COUNT 3.2 x10^3/uL; WHITE BLOOD COUNT 3.2 x10^3/uL (4.8-10.8)
[2017-09-02 17:37] LABS: UR CULTURE IF IND INDICATED; WBC,URINE 0-3 /HPF (0-5)
[2017-09-02 17:53] LABS: ALBUMIN/GLOBULIN RATIO 1.3 (1.0-2.2); BILIRUBIN,TOTAL 0.6 mg/dL (0.2-1.0); CALCIUM 8.7 mg/dL (8.5-10.3); CREATININE 0.9 mg/dL (0.4-1.0); POTASSIUM 2.9 mmol/L (3.5-5.0); TOTAL PROTEIN 6.3 g/dL (6.7-8.2)
[2017-09-02 18:54] VITALS: BP 181/97
--- NOTE | 2017-09-02 19:24 | CT Preliminary Report ---
Exam: CT ABDOMEN/PELVIS W/O IMPRESSION: 1. Right pelvic adnexal cyst measuring 9.5 cm. Differential includes benign and malignant ovarian cys tic mass or simple cyst. 2. No megaly. 3. Nodule in the anterior lower chest wall and right lower lobe pulmonary nodules appear similar. Carol picious for metastatic disease. 4. No urolithiasis or hydronephrosis. RADIA SITE ID: [id number]
--- NOTE | 2017-09-02 19:27 | CT Report ---
EXAM: CT ABDOMEN AND PELVIS EXAM DATE: 09/02/2017 06:36 PM. CLINICAL HISTORY: L flank/back pain, H/o Metastatic BRCA. COMPARISONS: CT chest 07/23/2017. TECHNIQUE: Routine helical CT imaging was performed through the abdomen and pelvis. IV contrast: None . Enteric contrast: No. Reconstructions: Coronal and sagittal. In accordance with CT protocol optimization, one or more of the following dose reduction techniques w ere utilized for this exam: automated exposure control, adjustment of mA and/or KV based on patient s ize, or use of iterative reconstructive technique. FINDINGS: Lung Bases: There is skin thickening of the right breast. There is a subcutaneous nodule in the anter ior lower right chest which is only partially included on the images. There is a medial right lower l obe 9 mm lung nodule without interval change. Liver: The liver is normal in size and contour. Gallbladder/Bile Ducts: Unremarkable. Spleen: The spleen is enlarged measuring 20 cm in length AP. Pancreas: Normal in size. Adrenal Glands: Normal. Kidneys: No kidney stones or hydronephrosis. The distal left ureter is obscured left hip metal prosth esis. Peritoneal Cavity/Bowel: No bowel obstruction or free air. No evidence of abscess. Pelvic Organs: There is a hypodense lesion in the right lower quadrant associated with the right adne xa measuring 9.5 x 8.2 x 7.2 cm. The uterus is anteverted. Left ovary is not seen. Vasculature: The abdominal aorta is normal in caliber. Bones: No significant abnormality. Other: None. IMPRESSION: 1. Right pelvic adnexal cyst measuring 9.5 cm. Differential includes benign and malignant ovarian cys tic mass or simple cyst. 2. No megaly. 3. Nodule in the anterior lower chest wall and right lower lobe pulmonary nodules appear similar. Carol picious for metastatic disease. 4. No urolithiasis or hydronephrosis. [facility] Referring Provider Line: [phone] SITE ID: [id number]
== END 2017-09-02 18:51 | disposition home or self-care (01) ==
LOC: ED 16:56
DX: N23 Unspecified renal colic (principal); Z87.442 Personal history of urinary calculi; Z85.3 Personal history of malignant neoplasm of breast; E11.9 Type 2 diabetes mellitus without complications; Z79.4 Long term (current) use of insulin
CPT/HCPCS: 36415; 74176; 80053; 81001; 81003; 81025; 83690; 84702; 85025; 87086; 99282; 99284

== ENCOUNTER 2019-08-14 10:21 | Outpatient (CLI) | payer MEDICARE, MEDICAID ==
[2019-08-14 10:53] LABS: ALBUMIN 3.6 g/dL (3.2-5.5); BILIRUBIN,TOTAL 0.7 mg/dL (0.2-1.0); CALCIUM 8.8 mg/dL (8.5-10.3); MAGNESIUM 2.2 mg/dL (1.7-2.8); TOTAL PROTEIN 7.1 g/dL (6.7-8.2)
== END 2019-08-14 10:22 | disposition home or self-care (01) ==
LOC: LAB 10:21
PROVIDERS: ATTEND Nurse Practitioner Family
DX: C50.919 Malignant neoplasm of unspecified site of unspecified female breast (principal); R19.7 Diarrhea, unspecified
CPT/HCPCS: 36415; 80053; 82150; 83690; 83735

== ENCOUNTER 2019-09-01 12:22 | Outpatient (CLI) | payer MEDICARE, MEDICAID ==
[2019-09-01 12:57] LABS: BASOPHILS % (AUTO) 0.7 %; EOSINOPHILS % (AUTO) 1.4 %; RED CELL DISTRIBUTION WIDTH 19.9 % (12.0-15.0); WHITE BLOOD COUNT 2.9 x10^3/uL (4.8-10.8)
[2019-09-01 13:04] LABS: HGB - HEMOGLOBIN 9.2 g/dL (12.0-16.0); LYMPHOCYTES % (AUTO) 10.9 %; MEAN CORPUSCULAR HEMOGLOBIN 31.7 pg (27.0-31.0); MEAN CORPUSCULAR HGB CONC 30.1 g/dL (32.0-36.0); MEAN CORPUSCULAR VOLUME 105.5 fL (81.0-99.0); MEAN PLATELET VOLUME 9.6 fL (7.9-10.8); MONOCYTES % (AUTO) 9.2 %; NEUTROPHILS % (AUTO) 77.5 %; PLT - PLATELET COUNT 131 10^3/uL (130-450)
[2019-09-01 13:07] LABS: CREATININE 0.9 mg/dL (0.4-1.0)
[2019-09-01 13:12] LABS: ABNORMAL LYMPHS % (MANUAL) 0 %
[2019-09-01 13:44] LABS: BAND NEUTROPHILS % (MANUAL) 2 %; DIFFERENTIAL COMMENT MANUAL DIFFERENTIAL; LYMPHOCYTES # (MANUAL) 0.3 10^3/uL (1.5-3.5); LYMPHOCYTES % (MANUAL) 11 %; MONOCYTES # (MANUAL) 0.3 10^3/uL (0.0-1.0); PLATELET ESTIMATE, MANUAL NORMAL (130-450,000) (NORMAL); PLATELET MORPHOLOGY NORMAL APPEARANCE (NORMAL); RBC MORPHOLOGY (MULTIPLE) 1+ MACROCYTOSIS (NORMAL)
== END 2019-09-01 12:23 | disposition home or self-care (01) ==
LOC: LAB 12:22
PROVIDERS: ATTEND Nurse Practitioner Family
DX: D64.9 Anemia, unspecified (principal); E87.6 Hypokalemia
CPT/HCPCS: 36415; 80048; 85025

== ENCOUNTER 2019-11-21 10:10 | Outpatient (CLI) | payer MEDICARE | END 2019-11-21 10:11 | disposition critical access hospital (66) | LOC: EMS 10:10 | PROVIDERS: ATTEND Surgery | DX: M25.562 Pain in left knee (principal); W00.0XXA Fall on same level due to ice and snow, initial encounter; Y93.01 Activity, walking, marching and hiking; Y92.480 Sidewalk as the place of occurrence of the external cause | CPT/HCPCS: A0425; A0429 ==

== ENCOUNTER 2019-11-21 10:29 | Observation (INO) | payer MEDICAID, MEDICARE ==
--- NOTE | 2019-11-21 11:10 | ED Physician Documentation ---
PD HPI LOWER EXT INJURY - Stated complaint Stated Complaint: L KNEE PAIN - Chief complaint Chief Complaint: Trauma Ext - History obtained from History obtained from: Patient, Family - History of Present Illness PD HPI LOW EXT INJURY LOCATION: Left, Upper leg Type of injury: Fall, Twist Where injury occurred: Home Timing - onset: Today Timing - duration: Minutes Timing - details: Abrupt onset, Still present Improved by: Rest, Immobilization Worsened by: Moving, Palpating Associated symptoms: No: Weakness, Numbness, Tingling, Swelling, Discolored Contributing factors: Prior ortho surgery Similar symptoms before: Diagnosis (pathologic hip fracture) Recently seen: Other - Additional information Additional information: 48-year-old female with a history of metastatic breast cancer has had a fall on the ice and has pain to the left posterior knee and is unable to bear weight on her leg. Her past history is complicated by a pathologic fracture of the left hip as her presenting symptom for breast cancer. She has been under care at [facility] for the past 7 years with multiple different regimens. She is currently on a study medication. She had a repair and prosthesis placed at the [facility] [address] Will. 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: section - Present Medications Home Medications: Ambulatory Orders Medication Instructions Recorded Confirmed lisinopriL [Lisinopril] 40 mg PO DAILY 07/23/17 03/24/19 Albuterol Sulfate [Proair Hfa 2 puffs INH ONCE PRN 12/03/17 03/24/19 Inhaler] Cholecalciferol (Vitamin D3) 1,000 units PO DAILY 12/03/17 03/24/19 [Vitamin D3] Multivitamin W/Minerals [Theragran 1 tab PO DAILY 12/03/17 03/24/19 M] Ondansetron HCl [Zofran] 8 mg PO ONCE PRN 12/03/17 03/24/19 Prochlorperazine Maleate 10 mg PO ONCE PRN 12/03/17 03/24/19 [Compazine] Pyridoxine HCl (Vitamin B6) 100 mg PO DAILY 12/03/17 03/24/19 [Vitamin B-6] raNITIdine [Zantac] 150 mg PO ONCE PRN 12/03/17 03/24/19 Dronabinol [Marinol] 5 mg PO Q6H PRN 08/05/18 03/24/19 - Allergies Allergies/Adverse Reactions: Allergies Allergy/AdvReac Type Severity Reaction Status Date / Time No Known Drug Allergies Allergy Verified 11/21/19 10:38 - Social History Does the pt smoke?: No Smoking Status: Never smoker Does the pt drink ETOH?: No Does the pt have substance abuse?: No - Immunizations Immunizations are current?: Yes - POLST Patient has POLST: No PD ED PE NORMAL - Vitals Vital signs reviewed: Yes (hypertensive) - General General: Alert and oriented X 3, No acute distress, Well developed/nourished - HEENT HEENT: Atraumatic, PERRL, EOMI - Respiratory Respiratory: No respiratory distress - Derm Derm: Normal color, Warm and dry, No rash - Extremities Extremities: No deformity, No edema, No calf tenderness / cord, Other (There is pain to movement of the left knee. There is pain and laxity to both the medial and lateral collateral ligaments with varis and valgus forces applied when compared to the right. Anterior drawer is negative. ) - Neuro Neuro: Alert and oriented X 3, residential worker 2-12 intact, No motor deficit, No sensory deficit, Normal speech Eye Opening: Spontaneous Motor: Obeys Commands Verbal: Oriented GCS Score: 15 - Psych Psych: Normal mood, Normal affect Results - Vitals Vitals: Vital Signs - 24 hr 11/21/19 11/21/19 11/21/19 10:34 12:26 18:13 Temperature 36.4 C L Heart Rate 97 93 102 H Respiratory 14 18 18 Rate Blood Pressure 146/67 H 139/61 H 133/44 H O2 Saturation 100 100 100 Oxygen O2 Source Room air - Rads (name of study) knee Radiology: Prelim report reviewed (Impression: Distal femoral vertical fracture recommend femur to visualize entire femur chondrocalcinosis.), EMP read indepedently, See rad report femur Radiology: Prelim report reviewed (Impression: 1. Distal femoral oblique vertical fracture. 2. Possible lucency along the arthroplasty which may represent loosening.), EMP read indepedently, See rad report PD MEDICAL DECISION MAKING - ED course Complexity details: reviewed old records, reviewed results, re-evaluated patient, considered differential, d/w patient, d/w family ED course: 48-year-old female with prior history of metastatic breast cancer has had a fall and she has a nondisplaced spiral fracture of her distal femur. Dr. Thurman is consulted in the case and he is able to review the films. He comes to the hospital to evaluate the patient and he wants to perform a surgical procedure requiring a plate and screws and he wants to do this percutaneously which requires the use of a table that is able to accommodate fluoroscopy. Today in the operating room there is not a table or extension able to help with the need for fluoroscopy. He attempted to get together two surgical tables. There are normally 3 surgical tables in the operating theater and today there are only 2 and he was denied. Attempt to consult the patient's surgeon at the [facility] resulted in a contact with Dr. Leon. He is an upper extremity surgeon and was unable to provide consultation to the services needed. There is a question of the possibility of needing to do a revision of the hip prosthesis as it appears to have loosened on radiographs. Surgeons at [place] in [place] are consulted. At shift change a disposition was not evident and care of the patient is turned over to Dr. Blanc. While awaiting disposition a Sellers catheter is placed patient is given some Toradol for pain control and IV is begun at 150 mL's per hour the patient is still n.p.o. Departure - Departure Clinical Impression: Nondisplaced fracture of distal epiphysis of left femur Qualifiers: Encounter type: initial encounter Fracture type: closed Qualified Code(s): S72.445A - Nondisplaced fracture of lower epiphysis (separation) of left femur, initial encounter for closed fracture Condition: Stable
--- NOTE | 2019-11-21 11:53 | XRAY Report ---
Reason: trauma/fall Procedure Date: 11/21/2019 Accession Number: [id number] / [id number] Procedure: XR - Knee 3 View LT CPT Code: Final Report FULL RESULT: EXAM: LEFT KNEE RADIOGRAPHY EXAM DATE: 11/21/2019 11:47 AM. CLINICAL HISTORY: Trauma/fall. COMPARISON: None. TECHNIQUE: 3 views. FINDINGS: Bones: Distal femoral vertical fracture. Joints: Lateral joint space osteophyte. Patellofemoral osteophyte. Trace effusion. Possible chondrocalcinosis Soft Tissues: Soft tissue swelling. IMPRESSION: Distal femoral vertical fracture. Recommend femur to visualize entire femur chondrocalcinosis [facility]
--- NOTE | 2019-11-21 13:37 | XRAY Report ---
Reason: fall knee pain frx on knee film Procedure Date: 11/21/2019 Accession Number: [id number] / [id number] Procedure: XR - Femur 2V LT CPT Code: Final Report FULL RESULT: EXAM: LEFT FEMUR RADIOGRAPHY EXAM DATE: 11/21/2019 01:21 PM. CLINICAL HISTORY: Fall knee pain frx on knee film. COMPARISON: None. TECHNIQUE: 2 views. FINDINGS: Bones: Distal femoral oblique vertical fracture. This does not appear to reach the arthroplasty Post left hip arthroplasty. There is lucency along the arthroplasty femoral stem which may represent loosening. Joints: The visualized hip and knee joints are normal. No effusions. Soft Tissues: Soft tissue swelling. IMPRESSION: 1. Distal femoral oblique vertical fracture. 2. Possible lucency along the arthroplasty which may represent loosening [facility]
[2019-11-21] MEDS ORDERED: KETOROLAC 30 MG/ML VIAL IVP STA (15:47)
--- NOTE | 2019-11-21 18:59 | CONSULTATION NOTE ---
DATE OF SERVICE: 11/21/2019 Physician: Al Thurman MD ORTHOPEDIC EMERGENCY ROOM CONSULT REFERRING PHYSICIAN: Cas Ewing MD of the Emergency Room Department. CHIEF COMPLAINT: "My left knee hurts." HISTORY OF PRESENT ILLNESS: Natalia Pinedo is a 48-year-old obese female who has had a hist ory of metastatic breast cancer and is still currently under chemo treatment for persistent disease, who is being evaluated for a nondisplaced extraarticular fracture to her distal femoral shaft. Her h istory is complicated besides her having metastatic breast cancer and on chemotherapy but she has als o had an ipsilateral total hip that was done seven years ago due to a pathologic fracture in this por tion of her femur as well. This prosthesis appears to be loose by radiographic appearance and in spe aking with the patient, clinically it appears as though she has been walking with a cane and a signif icant limp on this side over the last several years. She has not seen her arthroplasty surgeon kavita dempsey for years. She has been seen with the [facility] in [place] as well as her arthroplasty surge on, who is at the [facility]. With regards to her current problem, she apparently slip ped on ice last evening and has noted persistent left knee pain with difficulty standing and moving. She eventually was seen in the Emergency Room because of her persistent symptoms. X-rays that were taken evidently show a nondisplaced vertical fracture through the distal femoral diaphysis. It does not appear to have an intra-articular component to it. The x-rays also showed this loosening femoral component of her total hip on this side as well. PHYSICAL EXAMINATION: The patient is an obese woman lying in her stretcher in minimal discomfort cur rently. She has some tenderness on palpation of her distal thigh. There is minimal swelling or brui sing noted. There is some discomfort with range of motion to her knee. Neurovascularly appears to b e intact distally. Unable to evaluate her gait. IMAGING: X-rays that were taken again show evidence of a radiolucent loosening of her femoral compon ent of her total hip. The distal portion still appears to be anchored in the cement. In the distal f emur, there is a vertical nondisplaced fracture that is visible. There does not appear to be any int raarticular extension of this fracture. ASSESSMENT: 1. Probably extraarticular minimally displaced left distal femur fracture. 2. Status post left total hip replacement due to metastatic breast cancer metastasis-surgery done se ruben years ago. Speaking with her, historically it appears as if she is showing signs of loosening of her prostheses and radiographically, this also supports this presumed diagnosis. 3. The patient is still currently being treated with chemotherapy for persistent breast cancer. PLAN: Discussed with the patient treatment options. Because of her persistent breast cancer and the possibility of her being in a hypercoagulable state plus her obesity, it is my thought that she shou ld have surgical fixation of her distal femur fracture to allow for early mobilization of her knee an d ease in mobilizing her out of the bed while the fracture goes on to heal. Unfortunately, we are un able to do this surgery here due to inadequate OR table. We have 3 OR tables here at the hospital; o ne is not functioning and to occupy two tables to try to do this procedure is not prudent on a weeken d. Plus because of her complexity of her current medical situation with ongoing metastatic breast ca ncer, still being treated with chemotherapy and with loosening of a total hip on the ipsilateral side , it may be preferred to have the patient transferred back to [facility] or the [facility] where her Cancer and Arthroplasty physicians can coordinate the care of her fracture in anticipation of a revision of her total hip in the future. TD: 11/21/2019 17:38
[2019-11-21] MEDS ORDERED: SODIUM CHLORIDE 0.9% 1,000 ML IV ONE (19:00)
[2019-11-21] MEDS ORDERED: oxyCODONE 5 MG TABLET PO STA (21:30)
[2019-11-21] MEDS ORDERED: ACETAMINOPHEN 325 MG TABLET PO STA (21:30)
[2019-11-22] LABS: GLUCOSE, URINE (UA) NEGATIVE (NEGATIVE); KETONES,URINE (UA) 15 mg/dL (NEGATIVE); LEUKOCYTE ESTERASE, URINE NEGATIVE (NEGATIVE); NITRITE,URINE POSITIVE (NEGATIVE); OCCULT BLOOD,URINE TRACE-INTA (NEGATIVE); PH,URINE 5.5 PH (5.0-7.5); PROTEIN,URINE 30 mg/dL (NEGATIVE); UROBILINOGEN,URINE 1 (NORMAL) E.U./dL (NORMAL)
--- NOTE | 2019-11-22 00:06 | ED Physician Documentation ---
ED Addendum - Addendum Addendum: Patient was signed out to me by Dr. Ewing, briefly this is a 48-year-old female with a history of metastatic breast cancer currently on experimental therapy with the [place] [facility] who presents today with a left femur fracture and periprosthetic loosening of her left hip hardware after a fall on ice. [facility] was contacted and orthopedist Dr. Karthikeyan Leon was in the process of contacting the proper specialty of orthopedics. This process was taking multiple hours so Dr. Ewing paged [facility] to see if they would be comfortable taking care of the patient. I spoke with Dr. Godwin Portillo Of [facility], who reviewed the patient's images and had concerns that this could be a complicated surgery that would best done by a Ortho/oncology team. Additionally patient's care for her cancer is in [place], so she would be best served there. He stated that he was happy to accept the patient if we are unable to transfer elsewhere, but she would be probably best served at [facility]. [facility] was paged back, and I spoke with Dr. Karthikeyan Leon, Who had been able to contact the proper wage and salary specialist and stated that he agrees she would be best treated at the [facility]. However the transfer center informing that there were no beds available, and could be tomorrow or possibly longer before they had availability. I spoke with our hospitalist Dr. Walden to to discuss whether it would be possible to admit the patient here pending bed availability for transfer to the [facility]. I felt this was reasonable given that she has a new fracture, pain control requirements, and she is a cancer patient, boarding in the emergency department seems a less ideal plan of care for her. He will talk with the day team to discuss whether this will be possible. I updated patient with this plan of care. Also placed her in a knee immobilizer. She was given 10 mg oxycodone with good improvement in her pain. Oxycodone was ordered as needed, in addition to her home medications of lisinopril and gabapentin. I answered her questions to the best of my ability, and patient was signed out to Dr. Hutson with the plan to follow-up on bed availability for transfer to [facility]
[2019-11-22 00:10] LABS: BILIRUBIN,URINE NEGATIVE (NEGATIVE); CLARITY,URINE CLOUDY (CLEAR); ICTOTEST,URINE NEGATIVE
[2019-11-22 00:11] LABS: BACTERIA,URINE Few /HPF (None Seen); RBC,URINE 0-5 /HPF (0-5); SQUAMOUS EPITHELIAL CELL,UR NONE SEEN (<= Few)
[2019-11-22 00:12] LABS: AMORPHOUS SEDIMENT,UR Marked /LPF
[2019-11-22] MEDS ORDERED: cefTRIAXone 1 GM in SODIUM CHLORIDE 0.9% MINIBAG 100 ML IV STA (01:01)
[2019-11-22] MEDS: GABAPENTIN 100 MG CAPSULE PO SCH ×2 (01:18→09:42)
[2019-11-22] MEDS: oxyCODONE 5 MG TABLET PO PRN ×4 (02:21→18:24)
[2019-11-22] MEDS ORDERED: lisinopriL 5 MG TABLET PO SCH (09:00)
--- NOTE | 2019-11-22 09:17 | ED Physician Documentation ---
ED Addendum - Addendum Addendum: 11/22/19 09:08 Received sign out from Dr. Blanc at end of his shift; Dr. Blanc had received sign out from Dr. Ewing. Please refer to their notes for more detailed information. In brief, patient had sudden onset left hip pain when she slipped and fell on ice. She has left hip replacement, and xrays showed "distal femoral oblique vertical fracture" and "possible lucency along the arthroplasty which may represent loosening" (per radiologist's dictation). [facility] orthopedic surgeon was consulted (please refer to Dr. Thurman's note); he felt that patient required transfer to another facility for appropriate treatment. Dr. Blanc was eventually able to get patient accepted to .. but no beds available and thus she was signed out as ED hold until she was able to be transferred. Patient had no issues during my shift requiring emergent reevaluation. Signed out to Dr. Malhotra at end of my shift as patient continues to await transfer. Dr. Blanc had d/w [facility] hospitalist last night about admission to [facility] for ongoing symptomatic treatment until transfer could be undertaken; this was still under consideration at the time of end of my shift.
--- NOTE | 2019-11-22 11:30 | ED Physician Documentation ---
ED Addendum - Addendum Addendum: 11/22/19 11:28 This patient has been accepted at [facility] where they have a Ortho oncology team however they do not have any beds available for her to be transferred into. I tried to do direct ED to ED transfer which was rejected by [facility]. We also spoke with [facility] and [facility] neither of which have a combined Ortho oncology team. Working in close collaboration with our hospitalist, the nursing josep champagne and the CNO, the patient has been accepted to a hospital bed here pending transfer which in all likelihood will not occur until after the weekend. They told me directly from the transfer center at [facility] that there were several patients in front of her awaiting beds as well. Dx: Periprosthetic femur fracture.
[2019-11-22] MEDS ORDERED: PROCHLORPERAZINE 10 MG/2 ML VIAL IVP PRN (12:49)
--- NOTE | 2019-11-22 12:49 | PHARMACY PROGRESS NOTE ---
- Best Possible Medication History Admit Date and Time: 11/22/19 1144 Processed by: Pharmacy Medication History completed: Yes Patient Interview: Completed Secondary Source(s): Pharmacy records As the person ultimately responsible for medication therapy, providers are able to order a medication from an existing home medication list in [facility] via the "Reconcile Routine" prior to Confirmation of that medication by customer support assistant. Such practice is discouraged except when the physician, in their clinical judgment, deems that a medical need exists for a medication without regard to previous use.
[2019-11-22] MEDS ORDERED: ALBUTEROL NEB 2.5 MG/3 ML INH PRN (13:01)
[2019-11-22] MEDS: GABAPENTIN 300 MG CAPSULE PO SCH ×2 (13:18→21:27)
[2019-11-22] MEDS: ACETAMINOPHEN 325 MG TABLET PO PRN (13:20)
[2019-11-22] MEDS: SODIUM CHLORIDE FLUSH 0.9% 10 ML SYRINGE IVP SCH ×2 (13:36→18:24)
[2019-11-22] MEDS: SODIUM CHLORIDE FLUSH 0.9% 10 ML SYRINGE IVP PRN (13:37)
[2019-11-22 13:57] LABS: BASOPHILS % (AUTO) 0.4 %; HGB - HEMOGLOBIN 8.3 g/dL (12.0-16.0); LYMPHOCYTES % (AUTO) 6.4 %; MEAN CORPUSCULAR HGB CONC 31.6 g/dL (32.0-36.0); MEAN CORPUSCULAR VOLUME 107.8 fL (81.0-99.0); MONOCYTES % (AUTO) 5.6 %; NEUTROPHILS % (AUTO) 83.9 %; PLT - PLATELET COUNT 93 10^3/uL (130-450); RED BLOOD COUNT 2.44 10^6/uL (4.20-5.40); RED CELL DISTRIBUTION WIDTH 20.9 % (12.0-15.0); WHITE BLOOD COUNT 2.7 x10^3/uL (4.8-10.8)
[2019-11-22 13:59] LABS: ABNORMAL LYMPHS % (MANUAL) 0 %
[2019-11-22 14:07] LABS: ALBUMIN/GLOBULIN RATIO 1.1 (1.0-2.2); CALCIUM 8.3 mg/dL (8.5-10.3); CREATININE 0.9 mg/dL (0.4-1.0); MAGNESIUM 2.3 mg/dL (1.7-2.8); TOTAL PROTEIN 5.7 g/dL (6.7-8.2)
[2019-11-22 14:34] LABS: BAND NEUTROPHILS % (MANUAL) 3 %; EOSINOPHILS # (MANUAL) 0.2 10^3/uL (0-0.7); LYMPHOCYTES # (MANUAL) 0.1 10^3/uL (1.5-3.5); LYMPHOCYTES % (MANUAL) 4 %
[2019-11-22 14:35] LABS: PLATELET ESTIMATE, MANUAL DECREASED (<130,000) (NORMAL)
[2019-11-22 14:36] LABS: DIFFERENTIAL COMMENT MANUAL DIFFERENTIAL; PLATELET MORPHOLOGY NORMAL APPEARANCE (NORMAL)
[2019-11-22] MEDS ORDERED: IBUPROFEN 400 MG TABLET PO PRN (18:00)
--- NOTE | 2019-11-22 20:14 | HISTORY & PHYSICAL EXAMINATION ---
DATE OF SERVICE: 11/22/2019 Physician: Amara Shaw MD HISTORY OF PRESENT ILLNESS: This is a 48-year-old white female with a history of breast cancer diagnosed 7 years ago with metastasis, pathologic left hip fracture, which was treated with arthroplasty seven years ago, also a history of hypertension, borderline diabetes, who is on a study medication for treating her breast cancer. The patient receives IV therapy every 3 weeks at the [facility] in [place] and has been having this for 6 months. This medication gives her alopecia, nausea but no vomiting and constipation alternating with diarrhea. Her last treatment was approximately 3 weeks ago. She was due to have one this past week but could not attend because of the snowstorm that prevented her to travel there. During the snow, she fell on ice and presented to the Emergency Room yesterday when she had severe pain in the left knee area. The x- ray was diagnosed as having a distal left femur fracture that was oblique with a complication of having loosened the arthroplasty of the left hip previously repaired. The patient was to be transferred for orthopedic surgery after the Orthopedic on-call physician here did a consult and felt that this was too complex of a case to manage at a [facility], such as this. She was also not accepted at several other hospitals and was eventually accepted by Dr. Leon, Orthopedic Oncologist at [facility]; however, there were no beds available there. After many phone calls by the ER doctor here reaching out to several locations and the Transfer Center, and I myself called the Transfer Center, we learned that there would be a bed at on Sun and Dr Leon plans to do some type of testing on then schedule orthopedic surgery for her on Sun of next week, which is in 5 days. We had discussion with the warehouse logistics manager and CNO here, regarding staying in the ER here for over 48 hours, since the ER also would not accept her in transfer, and for better nursing care it was decided that the patient is to be housed here for pain control and then transferred to when a bed is available, which is in about 2 days. In our ER, the patient also had a urinalysis done, which showed bacteriuria and positive nitrites and she is being treated for a UTI. She has started to have pain management using narcotics and has had good pain control. PAST MEDICAL HISTORY: Breast cancer diagnosed 7 years ago. Malignant metastasis and she is on a study triple drug medication for the past 6 months. Also Hx of prior pathologic left hip fracture, borderline diabetes, hypertension. ALLERGIES: NONE. MEDICATIONS: 1. Lisinopril 40 mg daily. 2. Vitamin B6 daily. 3. Multivitamin daily. 4. Vitamin D3 daily. 5. Potassium chloride 20 mEq daily. 6. Gabapentin 300 mg t.i.d. 7. Albuterol p.r.n. SOCIAL HISTORY: She is a nonsmoker, who never smoked, drinks social alcohol. No illicit drug use. Uses occasional CBD oil. She lives alone. She is 25 years ago and has an adult daughter, who lives in [place]. FAMILY HISTORY: Noncontributory. REVIEW OF SYSTEMS: She has sciatica pain on the left after the hip surgery. A comprehensive review of systems was performed and the pertinent positives are listed above; the rest are negative. PHYSICAL EXAMINATION: GENERAL: Middle-aged female with alopecia. She is in no distress. VITAL SIGNS: Blood pressure 130/50, heart rate 80-90 in sinus rhythm, afebrile, room air saturation 98%. HEENT: Reveals significant hair loss but there is regrowth of short greene hair. Moist oral mucosa. Extraocular movements intact. NECK: Without JVD or thyromegaly. CHEST: Clear. HEART: Normal heart sounds. No murmur. BREASTS: Large. ABDOMEN: Obese, nontender. Normal bowel sounds. EXTREMITIES: No clubbing, cyanosis or edema. The left knee is in a brace that extends nearly up to the left groin. NEUROLOGIC: Grossly intact. LABORATORY DATA: Urinalysis: Specific gravity greater than 1.03, high glucose, high ketones, positive nitrites and a few white cells. White blood count is 2.7, hemoglobin 8.3, platelet count 93. No INR was done. Normal electrolytes. Normal BUN and creatinine. Magnesium 2.3, glucose 143. IMAGING: The femur and knee x-rays show distal femur oblique vertical fracture and possible lucency along the arthroplasty, which may represent loosening. No chest x-ray was done. No EKG was done. IMPRESSION/DIAGNOSES: 1. Fracture of the left femur. 2. Loose total left hip arthroplasty, that was previously done for a pathologic fracture. 3. Breast cancer with metastasis to bone. Currently on chemo with a study drug. 4. Pancytopenia, likely from chemo. 5. Hypertension. 6. Urinary tract infection. 7. Sciatica pain. 8. Borderline diabetes. PLAN: Place the patient in Observation status. Treat with narcotics for pain control. Add Motrin, which she uses for sciatica pain. The patient states she does not follow a diabetic diet; a regular diet will be ordered. Check an A1c. Continue to treat the urinary tract infection with empiric iv Ceftriaxone, which was started in the ER and await culture results. Continue her medications for hypertension and her pain medicine and vitamins. Plan for transfer when there is a bed open at [facility] under the service of Orthopedic Oncology. DEEP VENOUS THROMBOSIS PROPHYLAXIS: Pharmacotherapy using Lovenox. CODE STATUS: FULL CODE. ATTESTATION: The patient is expected to be discharged or transferred to another facility within 96 hours: Yes. cc: Tabatha Andrade MD TD: 11/22/2019 18:20 MTDD
[2019-11-22] MEDS: FAMOTIDINE 20 MG TABLET PO SCH (21:26)
[2019-11-23] MEDS: IBUPROFEN 400 MG TABLET PO PRN (00:03)
[2019-11-23] MEDS: SODIUM CHLORIDE FLUSH 0.9% 10 ML SYRINGE IVP SCH ×3 (01:23→21:34)
[2019-11-23] MEDS: oxyCODONE 5 MG TABLET PO PRN ×3 (02:59→18:37)
[2019-11-23] MEDS: GABAPENTIN 300 MG CAPSULE PO SCH ×3 (06:15→21:35)
[2019-11-23] MEDS: SODIUM CHLORIDE FLUSH 0.9% 10 ML SYRINGE IVP PRN ×3 (06:21→21:34)
[2019-11-23 06:52] LABS: BASOPHILS % (AUTO) 0.4 %; EOSINOPHILS % (AUTO) 3.8 %; HGB - HEMOGLOBIN 8.2 g/dL (12.0-16.0); LYMPHOCYTES % (AUTO) 9.8 %; MEAN CORPUSCULAR HGB CONC 31.8 g/dL (32.0-36.0); MEAN CORPUSCULAR VOLUME 107.1 fL (81.0-99.0); MEAN PLATELET VOLUME 9.4 fL (7.9-10.8); MONOCYTES % (AUTO) 7.7 %; NEUTROPHILS % (AUTO) 77.4 %; PLT - PLATELET COUNT 93 10^3/uL (130-450); RED BLOOD COUNT 2.41 10^6/uL (4.20-5.40); RED CELL DISTRIBUTION WIDTH 21.1 % (12.0-15.0); WHITE BLOOD COUNT 2.3 x10^3/uL (4.8-10.8)
[2019-11-23 06:55] LABS: ABNORMAL LYMPHS % (MANUAL) 0 %
[2019-11-23 07:03] LABS: CALCIUM 8.3 mg/dL (8.5-10.3); CREATININE 0.9 mg/dL (0.4-1.0); MAGNESIUM 2.3 mg/dL (1.7-2.8)
[2019-11-23 07:07] LABS: HEMOGLOBIN A1C 0.3 g/dL; HEMOGLOBIN A1C % 5.6 % (4.6-6.2)
[2019-11-23 07:09] LABS: BAND NEUTROPHILS % (MANUAL) 1 %; LYMPHOCYTES # (MANUAL) 0.2 10^3/uL (1.5-3.5); LYMPHOCYTES % (MANUAL) 7 %; MONOCYTES # (MANUAL) 0.1 10^3/uL (0.0-1.0); MYELOCYTES % (MANUAL) 2 %
[2019-11-23 07:10] LABS: RBC MORPHOLOGY (MULTIPLE) 2+ ANISOCYTOSIS (NORMAL)
[2019-11-23 07:11] LABS: DIFFERENTIAL COMMENT MANUAL DIFFERENTIAL; PLATELET ESTIMATE, MANUAL DECREASED (<130,000) (NORMAL); PLATELET MORPHOLOGY NORMAL APPEARANCE (NORMAL)
[2019-11-23] MEDS: polyethylene glycoL 3350 17 GM PACKET PO SCH (08:14)
[2019-11-23] MEDS: lisinopriL 20 MG TABLET PO SCH (08:15)
[2019-11-23] MEDS: FAMOTIDINE 20 MG TABLET PO SCH ×2 (08:15→21:35)
[2019-11-23] MEDS: CHOLECALCIFEROL 1,000 UNIT TABLET PO SCH (08:15)
[2019-11-23] MEDS: ENOXAPARIN 40 MG/0.4 ML SYRINGE SUBQ SCH ×3 (08:15→12:09)
[2019-11-23] MEDS: MULTIVITAMIN W/MINERALS TABLET PO SCH (08:15)
[2019-11-23] MEDS: cefTRIAXone 1 GM in SODIUM CHLORIDE 0.9% MINIBAG 100 ML IV SCH (08:15)
[2019-11-23] MEDS: PYRIDOXINE 100 MG TABLET PO SCH (08:15)
[2019-11-23] MEDS: POTASSIUM CHLOR 10 MEQ/100 ML 10 MEQ/100 ML BAG IV SCH ×2 (09:15→10:27)
--- NOTE | 2019-11-23 11:51 | PROVIDER PROGRESS NOTE ---
Assessment/Plan - Problem List (1) Femur fracture, left Assessment/Plan: Awaiting transfer to [facility] when a bed is available. Continue with meds for pain control (2) Loose total hip arthroplasty Assessment/Plan: Same as #1 (3) Breast cancer metastasized to bone Assessment/Plan: This is the reason for transfer to , requiring orthopedic oncology and this is where she gets her study medications for breast cancer treatment through (4) Pancytopenia Assessment/Plan: The platelet count is under 100 K today therefore no Lovenox. Monitor CBC daily (5) Constipation Assessment/Plan: Likely related to narcotic use for pain control Will escalate bowel protocol (6) Hypokalemia Assessment/Plan: Replace. We will restart her home dose of daily potassium. Follow BMP daily - Current Meds Current Meds: Current Medications Generic Name Dose Route Start Last Admin Trade Name Freq PRN Reason Stop Dose Admin Acetaminophen 650 mg 11/22/19 12:49 11/22/19 13:20 Tylenol PO 650 mg Q4HR PRN Administration Pain or Fever > 38C (100.4F) Cholecalciferol 1,000 unit 11/23/19 09:00 11/23/19 08:15 Vitamin D3 PO 1,000 unit DAILY KILO Administration Famotidine 20 mg 11/22/19 21:00 11/23/19 08:15 Pepcid PO 20 mg BID KILO Administration Gabapentin 300 mg 11/22/19 14:00 11/23/19 06:15 Neurontin PO 300 mg TID KILO Administration Heparin Sodium (Beef Lung) 300 - 500 unit 11/22/19 13:13 11/23/19 11:35 IVP 500 unit PRN PRN Administration Port Protocol (>24 hours) Ceftriaxone Sodium 1 gm/ 100 mls @ 200 mls/hr 11/23/19 09:00 11/23/19 08:50 Sodium Chloride IV Infused DAILY KILO Infusion Ibuprofen 400 mg 11/22/19 18:03 11/23/19 00:03 Motrin PO 400 mg Q6HR PRN Administration PAIN Lisinopril 40 mg 11/23/19 09:00 11/23/19 08:15 Zestril PO 40 mg DAILY KILO Administration Multivitamins/Minerals 1 tab 11/23/19 09:00 11/23/19 08:15 Theragran M PO 1 tab DAILY KILO Administration Oxycodone HCl 5 mg 11/22/19 12:49 11/23/19 11:35 Roxicodone PO 5 mg Q4HR PRN Administration Pain 5 to 7 Polyethylene Glycol 17 gm 11/23/19 09:00 11/23/19 08:14 Miralax PO 17 gm DAILY KILO Administration Prochlorperazine Edisylate 10 mg 11/22/19 12:49 11/23/19 06:20 Compazine Inj IVP 10 mg Q6HR PRN Administration Nausea / Vomiting Pyridoxine HCl 100 mg 11/23/19 09:00 11/23/19 08:15 Vitamin B-6 PO 100 mg DAILY KILO Administration Sodium Chloride 10 ml 11/22/19 12:49 11/23/19 06:21 Normal Saline Flush 0.9% IVP 10 ml PRN PRN Administration NEEDED PER PROVIDER ORDERS Sodium Chloride 10 ml 11/22/19 17:00 11/23/19 06:21 Normal Saline Flush 0.9% IVP 10 ml 0100,0900,1700 KILO Administration Sodium Chloride 20 ml 11/22/19 13:13 11/23/19 06:21 Normal Saline Flush 0.9% IVP 20 ml PRN PRN Administration After Blood Draw - Lab Result Fish Bone Diagrams: 11/23/19 06:15 11/23/19 06:15 - Additional Planning My Orders: My Active Orders 11/22/19 12:49 Activity Orders [RC] Q2HR IO [RC] IOSHIFT Initiate Bowel Care Protocol [RC] .protocol Initiate Line Care Protocol [RC] QSHIFT Initiate Lung Inflation Protoc [RC] .PROTOCOL Initiate Personal Care Protoco [RC] .protocol Oxygen Therapy [RC] Routine Vital Signs [RC] 0800,1600,0000 Acetaminophen [Tylenol] 650 mg PO Q4HR PRN Prochlorperazine Inj [Compazine Inj] 10 mg IVP Q6HR PRN Sodium Chloride Flush 0.9% [Normal Saline Flush 0.9%] 10 ml IVP PRN PRN oxyCODONE [Roxicodone] 5 mg PO Q4HR PRN Code Status [OTHERS] Routine Condition of Patient [OTHERS] Routine DVT Prophylaxis [OTHERS] Routine 11/22/19 12:51 IV Insert [RC] .ONCE 11/22/19 12:52 Initiate Line Care Protocol [RC] QSHIFT Turn, Cough and Deep Breathe [RC] Q4HR 11/22/19 12:53 Turn and Reposition [RC] prn 11/22/19 13:01 Albuterol 2.5 mg INH RTQ4H PRN 11/22/19 13:13 Heparin Flush 300 - 500 unit IVP PRN PRN Sodium Chloride Flush 0.9% [Normal Saline Flush 0.9%] 20 ml IVP PRN PRN 11/22/19 14:00 Gabapentin [Neurontin] 300 mg PO TID 11/22/19 17:00 Sodium Chloride Flush 0.9% [Normal Saline Flush 0.9%] 10 ml IVP 0100,0900,1700 11/22/19 18:03 Ibuprofen [Motrin] 400 mg PO Q6HR PRN 11/22/19 21:00 Famotidine [Pepcid] 20 mg PO BID 11/22/19 21:45 Heparin Flush 30 - 50 unit IVP PRN PRN 11/22/19 Dinner Regular Diet [DIET] 11/23/19 09:00 Cholecalciferol [Vitamin D3] 1,000 unit PO DAILY Multivitamin W/Minerals [Theragran M] 1 tab PO DAILY Potassium Chloride [K-Dur] 20 meq PO DAILYWM Pyridoxine [Vitamin B-6] 100 mg PO DAILY cefTRIAXone [Rocephin] 1 gm Sodium Chloride 0.9% Minibag [Normal Saline 0.9% Minibag] 100 ml IV DAILY lisinopriL [Zestril] 40 mg PO DAILY polyethylene glycoL 3350 [Miralax] 17 gm PO DAILY 11/23/19 11:47 Enoxaparin [Lovenox] 40 mg SUBQ DAILY 11/24/19 05:00 BMP - BASIC METABOLIC PANEL [CHEM] DAILYLAB CBC - COMP BLD CT W/AUTO DIFF [HEME] DAILYLAB Subjective - Subjective Patient Reports: Constipation Objective Vital Signs: Vital Signs - 24 hr 11/22/19 11/22/19 11/22/19 12:22 13:03 16:00 Temperature 37 C 37.2 C Heart Rate 92 Heart Rate [ 82 Radial] Respiratory 18 20 18 Rate Blood Pressure 148/83 H Blood Pressure 130/75 131/54 H [Left Brachial artery] Blood Pressure [Left Radial artery] O2 Saturation 100 98 98 11/22/19 11/23/19 11/23/19 20:45 00:00 06:23 Temperature 37.2 C 37.1 C 36.6 C Heart Rate 83 Heart Rate [ 85 81 Radial] Respiratory 18 18 18 Rate Blood Pressure Blood Pressure [Left Brachial artery] Blood Pressure 135/70 H 120/52 L [Left Radial artery] O2 Saturation 99 97 96 11/23/19 08:50 Temperature 36.8 C Heart Rate Heart Rate [ 85 Radial] Respiratory 16 Rate Blood Pressure Blood Pressure [Left Brachial artery] Blood Pressure 124/60 [Left Radial artery] O2 Saturation 95 Oxygen O2 Source Room air I&O (Last 24 Hrs): Intake and Output Totals x24h 11/21/19 11/22/19 11/23/19 23:59 23:59 23:59 Intake Total 1340 1450 Output Total 800 1650 Balance 540 -200 General: Alert, Oriented x3 HEENT: Mucous membr. moist/pink, Other (Alopecia) Neck: Supple, No JVD Neuro: Alert, Non Focal Cardiovascular: Regular rate, No murmurs Respiratory: No respiratory distress, Breath sounds nml Abdomen: Soft Extremities: No edema, Other (Left leg brace in place) - Results Results: Laboratory Results WBC 2.3 x10^3/uL (4.8-10.8) L 11/23/19 06:15 RBC 2.41 10^6/uL (4.20-5.40) L 11/23/19 06:15 Hgb 8.2 g/dL (12.0-16.0) L 11/23/19 06:15 Hct 25.8 % (37.0-47.0) L 11/23/19 06:15 MCV 107.1 fL (81.0-99.0) H 11/23/19 06:15 MCH 34.0 pg (27.0-31.0) H 11/23/19 06:15 MCHC 31.8 g/dL (32.0-36.0) L 11/23/19 06:15 RDW 21.1 % (12.0-15.0) H 11/23/19 06:15 Plt Count 93 10^3/uL (130-450) L 11/23/19 06:15 MPV 9.4 fL (7.9-10.8) 11/23/19 06:15 Neut # (Auto) Not Reportable 11/23/19 06:15 Lymph # (Auto) Not Reportable 11/23/19 06:15 Hart # (Auto) Not Reportable 11/23/19 06:15 Eos # (Auto) Not Reportable 11/23/19 06:15 Baso # (Auto) Not Reportable 11/23/19 06:15 Absolute Nucleated RBC Not Reportable 11/23/19 06:15 Total Counted 100 11/23/19 06:15 Band Neuts % (Manual) 1 % (0-10) 11/23/19 06:15 Abnorm Lymph % (Manual) 0 % 11/23/19 06:15 Myelocytes % 2 % (-0) H 11/23/19 06:15 Nucleated RBC % Not Reportable 11/23/19 06:15 Neutrophils # (Manual) 1.9 10^3/uL (1.5-6.6) 11/23/19 06:15 Lymphocytes # (Manual) 0.2 10^3/uL (1.5-3.5) L 11/23/19 06:15 Monocytes # (Manual) 0.1 10^3/uL (0.0-1.0) 11/23/19 06:15 Eosinophils # (Manual) 0.0 10^3/uL (0-0.7) 11/23/19 06:15 Basophils # (Manual) 0.0 10^3/uL (0-0.1) 11/23/19 06:15 Differential Comment MANUAL DIFFERENTIAL 11/23/19 06:15 WBC Morphology NORMAL APPEARANCE (NORMAL) 11/23/19 06:15 Platelet Estimate DECREASED (<130,000) (NORMAL) 11/23/19 06:15 Platelet Morphology NORMAL APPEARANCE (NORMAL) 11/23/19 06:15 RBC Morph Micro Appear 2+ OVALOCYTES (NORMAL) 2+ TEARDROP CELLS (NORMAL) 2+ POIKILOCYTOSIS (NORMAL) 11/22/19 13:33 RBC Morph Micro Appear 2+ OVALOCYTES (NORMAL) 2+ TEARDROP CELLS (NORMAL) 2+ POIKILOCYTOSIS (NORMAL) 11/22/19 13:33 RBC Morph Micro Appear 2+ ANISOCYTOSIS (NORMAL) 11/23/19 06:15 Sodium 137 mmol/L (135-145) 11/23/19 06:15 Potassium 3.3 mmol/L (3.5-5.0) L 11/23/19 06:15 Chloride 108 mmol/L (101-111) 11/23/19 06:15 Carbon Dioxide 23 mmol/L (21-32) 11/23/19 06:15 Anion Gap 6.0 (6-13) 11/23/19 06:15 BUN 9 mg/dL (6-20) 11/23/19 06:15 Creatinine 0.9 mg/dL (0.4-1.0) 11/23/19 06:15 Estimated GFR (MDRD) 66 (>89) L 11/23/19 06:15 Glucose 110 mg/dL (70-100) H 11/23/19 06:15 Glycated Hemoglobin 5.6 % (4.6-6.2) 11/23/19 06:15 Estim Average Glucose 114 (70-100) H 11/23/19 06:15 Calcium 8.3 mg/dL (8.5-10.3) L 11/23/19 06:15 Magnesium 2.3 mg/dL (1.7-2.8) 11/23/19 06:15 Total Bilirubin 1.0 mg/dL (0.2-1.0) 11/22/19 13:33 AST 20 IU/L (10-42) 11/22/19 13:33 ALT 14 IU/L (10-60) 11/22/19 13:33 Alkaline Phosphatase 63 IU/L (42-121) 11/22/19 13:33 Total Protein 5.7 g/dL (6.7-8.2) L 11/22/19 13:33 Albumin 3.0 g/dL (3.2-5.5) L 11/22/19 13:33 Globulin 2.7 g/dL (2.1-4.2) 11/22/19 13:33 Albumin/Globulin Ratio 1.1 (1.0-2.2) 11/22/19 13:33 Urine Color LT RED 11/21/19 23:45 Urine Clarity CLOUDY (CLEAR) 11/21/19 23:45 Urine pH 5.5 PH (5.0-7.5) 11/21/19 23:45 Ur Specific [place] >=1.030 (1.002-1.030) H 11/21/19 23:45 Urine Protein 30 mg/dL (NEGATIVE) H 11/21/19 23:45 Urine Glucose (UA) NEGATIVE mg/dL (NEGATIVE) 11/21/19 23:45 Urine Ketones 15 mg/dL (NEGATIVE) H 11/21/19 23:45 Urine Occult Blood TRACE-INTA (NEGATIVE) 11/21/19 23:45 Urine Nitrite POSITIVE (NEGATIVE) H 11/21/19 23:45 Urine Bilirubin NEGATIVE (NEGATIVE) 11/21/19 23:45 Urine Urobilinogen 1 (NORMAL) E.U./dL (NORMAL) 11/21/19 23:45 Ur Leukocyte Esterase NEGATIVE (NEGATIVE) 11/21/19 23:45 Urine RBC 0-5 /HPF (0-5) 11/21/19 23:45 Urine WBC 0-3 /HPF (0-5) 11/21/19 23:45 Ur Squamous Epith Cells NONE SEEN (<= Few) 11/21/19 23:45 Amorphous Sediment Marked /LPF 11/21/19 23:45 Urine Bacteria Few /HPF (None Seen) 11/21/19 23:45 Urine Culture Comments INDICATED 11/21/19 23:45
[2019-11-23] MEDS: POTASSIUM CHLORIDE 20 MEQ TABLET PO SCH (12:13)
[2019-11-23] MEDS: ACETAMINOPHEN 325 MG TABLET PO PRN (18:36)
[2019-11-23] MEDS: DOCUSATE SODIUM 250 MG CAPSULE PO SCH ×2 (21:35→21:39)
[2019-11-24] MEDS: SODIUM CHLORIDE FLUSH 0.9% 10 ML SYRINGE IVP SCH ×2 (00:46→08:31)
[2019-11-24] MEDS: oxyCODONE 5 MG TABLET PO PRN ×3 (02:37→15:10)
[2019-11-24] MEDS: SODIUM CHLORIDE FLUSH 0.9% 10 ML SYRINGE IVP PRN ×4 (05:07→15:11)
[2019-11-24] MEDS: IBUPROFEN 400 MG TABLET PO PRN ×2 (05:07→13:40)
[2019-11-24] MEDS: GABAPENTIN 300 MG CAPSULE PO SCH ×2 (05:07→13:42)
[2019-11-24 05:10] LABS: BASOPHILS % (AUTO) 0.3 %; EOSINOPHILS # (AUTO) 0.1 10^3/uL (0.0-0.7); EOSINOPHILS % (AUTO) 2.3 %; HGB - HEMOGLOBIN 8.3 g/dL (12.0-16.0); LYMPHOCYTES # (AUTO) 0.2 10^3/uL (1.5-3.5); LYMPHOCYTES % (AUTO) 7.9 %; MEAN CORPUSCULAR HEMOGLOBIN 33.6 pg (27.0-31.0); MEAN CORPUSCULAR HGB CONC 31.7 g/dL (32.0-36.0); MEAN CORPUSCULAR VOLUME 106.1 fL (81.0-99.0); MEAN PLATELET VOLUME 9.4 fL (7.9-10.8); MONOCYTES # (AUTO) 0.2 10^3/uL (0.0-1.0); MONOCYTES % (AUTO) 7.9 %; NEUTROPHILS # (AUTO) 2.4 10^3/uL (1.5-6.6); NEUTROPHILS % (AUTO) 80.6 %; PLT - PLATELET COUNT 95 10^3/uL (130-450); RED BLOOD COUNT 2.47 10^6/uL (4.20-5.40); RED CELL DISTRIBUTION WIDTH 20.4 % (12.0-15.0)
[2019-11-24 05:20] LABS: CALCIUM 8.3 mg/dL (8.5-10.3); CREATININE 0.9 mg/dL (0.4-1.0)
[2019-11-24 06:22] LABS: PLATELET ESTIMATE, MANUAL DECREASED (<130,000) (NORMAL)
[2019-11-24] MEDS: lisinopriL 20 MG TABLET PO SCH (08:28)
[2019-11-24] MEDS: MULTIVITAMIN W/MINERALS TABLET PO SCH (08:29)
[2019-11-24] MEDS: polyethylene glycoL 3350 17 GM PACKET PO SCH (08:29)
[2019-11-24] MEDS: CHOLECALCIFEROL 1,000 UNIT TABLET PO SCH (08:30)
[2019-11-24] MEDS: PYRIDOXINE 100 MG TABLET PO SCH (08:30)
[2019-11-24] MEDS: POTASSIUM CHLORIDE 20 MEQ TABLET PO SCH (08:30)
[2019-11-24] MEDS: ENOXAPARIN 40 MG/0.4 ML SYRINGE SUBQ SCH (08:30)
[2019-11-24] MEDS: FAMOTIDINE 20 MG TABLET PO SCH (08:30)
[2019-11-24] MEDS: cefTRIAXone 1 GM in SODIUM CHLORIDE 0.9% MINIBAG 100 ML IV SCH (08:31)
[2019-11-24] MEDS: DOCUSATE SODIUM 250 MG CAPSULE PO SCH (08:33)
--- NOTE | 2019-11-24 14:24 | Discharge Plan ---
Discharge Plan Problem Reviewed?: Yes Disposition: 02 Transfer Acute Care Hosp Condition: Stable Diet: Regular Activity Restrictions: Activity as Tolerated No Smoking: If you smoke, Please STOP! Call for help. Follow-up with: Tabatha Andrade MD [Primary Care Provider] -
--- NOTE | 2019-11-24 14:25 | DISCHARGE SUMMARY ---
Discharge Summary Admit Date: 11/22/19 Discharge Date: 11/24/19 Discharging Provider: Dr Amara Shaw Primary Care Provider: Dr Tabatha Andrade Code Status: Attempt Resuscitation Condition at Discharge: Stable Discharge Disposition: 02 Transfer Acute Care Hosp Discharge Facility Name: - DIAGNOSES Admission Diagnoses: 1) Fracture of L femur 2) Loosened total L hip arthroplasty, which was previously done due to a pathologic fracture 3) Breast CA with bone mets 4) Pancytopenia, likely from chemo 5) HTN 6) UTI 7) Sciatica pain 8) Borderline DM Discharge Diagnoses with Status of Each Condition: See below - HPI History of Present Illness: This is a 48 y/o WF with Hx of borderline DM, HTN, Breast CA with bone mets, pathologic L hip fracture that had surgery with arthroplasty, currently undergoing chemo in a research study at [facility] and . She fell on the ice and sustained a L femure fracture and loosened the L hip arthroplasty. The orthopedic surgeon here saw her in consult and stated the surgery was too complex to be done here and the ER doctor reached out to another hospital where she was also felt to be too complex, and the Orthopedic Oncologist at , Dr Leon, did accept her, but there were no beds available at for the next 3 days. She was therefore placed in Observation status here for treating her pain, turning and repositioning her while at bedrest, until she could be transferred to . Her admission lab results showed bacteriurea and she was started on antibiotics as well. - HOSPITAL COURSE Hospital Course: (1) Femur fracture, left She had good pain control while here, awaiting transfer to [facility] when a bed was available. She was transferred in stable condition on Sun11/24/19. (2) Loose total hip arthroplasty Same as #1 (3) Breast cancer metastasized to bone This was the reason for transfer to , requiring orthopedic oncology and this is where she gets her study medications for breast cancer treatment, through [facility] and . (4) Pancytopenia The CBC was monitored daily. She did not require any blood product transfusions but when her platelet count was under 100K (at 93K) the prophylactic Lovenox was not administered that day. (5) Constipation This was likely related to narcotic use for pain control and her bowel protocol was escalated. (6) Hypokalemia It was replaced and her home dose of daily potassium was resumed. BMP followed daily. (7) UTI There was no dysuria to give Pyridium. The final Microbiology report stated that her urine culture grew "a rare gram neg ifeanyi therefore no identification was done", but she had gotten 3 days of empiric iv Cefriaxone. - ALLERGIES Allergies/Adverse Reactions: Allergies Allergy/AdvReac Type Severity Reaction Status Date / Time No Known Drug Allergies Allergy Verified 11/21/19 10:38 - MEDICATIONS Home Medications: Ambulatory Orders Medication Instructions Recorded Confirmed Albuterol Sulfate [Proair Hfa 2 puffs INH Q4H PRN 12/03/17 11/22/19 Inhaler] Cholecalciferol (Vitamin D3) 1,000 units PO DAILY 12/03/17 11/22/19 [Vitamin D3] Multivitamin W/Minerals [Theragran 1 tab PO DAILY 12/03/17 11/22/19 M] Pyridoxine HCl (Vitamin B6) 100 mg PO DAILY 12/03/17 11/22/19 [Vitamin B-6] Gabapentin 300 mg PO TID 11/21/19 11/22/19 Potassium Chloride 20 meq PO DAILY 11/21/19 11/22/19 lisinopriL [Lisinopril] 40 mg PO DAILY 11/22/19 11/22/19 - PHYSICAL EXAM AT DISCHARGE General Appearance: positive: No acute distress, Alert, Other (Alopecia) Eyes Bilateral: positive: Normal inspection, EOMI ENT: positive: ENT inspection nml, No signs of dehydration Neck: positive: Nml inspection Respiratory: positive: No respiratory distress, Breath sounds nml Cardiovascular: positive: Regular rate & rhythm, No murmur Abdomen: positive: Non-tender, Nml bowel sounds, Other (Obese) Skin: positive: Color nml Extremities: positive: No pedal edema Neurologic/Psychiatric: positive: Oriented x3, Other (Grossly normal) - LABS Result Diagrams: 11/24/19 04:50 11/24/19 04:50 - DIAGNOSTIC IMAGING Diagnostic Imaging Results: Final report reviewed - FOLLOW UP Follow Up: This will be determined after her hospitalization at . - TIME SPENT Time Spent in Discharge (Minutes): 30
[2019-11-24 16:26] VITALS: BP 139/75
== END 2019-11-24 16:27 | disposition short-term general hospital (02) ==
LOC: EDUNIT# → ED 10:29 → MS3 11-22 11:44
PROVIDERS: ADMIT Internal Medicine; ATTEND Internal Medicine
DX: S72.402A Unspecified fracture of lower end of left femur, initial encounter for closed fracture (principal); T84.031A Mechanical loosening of internal left hip prosthetic joint, initial encounter; M97.02XA Periprosthetic fracture around internal prosthetic left hip joint, initial encounter; W00.0XXA Fall on same level due to ice and snow, initial encounter; Y92.009 Unspecified place in unspecified non-institutional (private) residence as the place of occurrence of the external cause; Y83.8 Other surgical procedures as the cause of abnormal reaction of the patient, or of later complication, without mention of misadventure at the time of the procedure; C50.919 Malignant neoplasm of unspecified site of unspecified female breast; C79.51 Secondary malignant neoplasm of bone; N39.0 Urinary tract infection, site not specified; D61.818 Other pancytopenia; M54.32 Sciatica, left side; I10 Essential (primary) hypertension; E66.01 Morbid (severe) obesity due to excess calories; R73.03 Prediabetes; E87.6 Hypokalemia; K59.00 Constipation, unspecified; Z79.899 Other long term (current) drug therapy; Z68.38 Body mass index [BMI] 38.0-38.9, adult; Z74.01 Bed confinement status
CPT/HCPCS: 51702; 73552; 73562; 80048; 80053; 81001; 83036; 83735; 85025; 87086; 96365; 96366; 96367; 96375; 99284; 99285; A9270; G0378; J1650

== ENCOUNTER 2020-05-24 14:14 | Outpatient (CLI) | payer MEDICARE ==
[2020-05-24 14:37] LABS: BASOPHILS % (AUTO) 0.4 %; EOSINOPHILS # (AUTO) 0.3 10^3/uL (0.0-0.7); EOSINOPHILS % (AUTO) 9.8 %; HGB - HEMOGLOBIN 8.2 g/dL (12.0-16.0); LYMPHOCYTES # (AUTO) 0.3 10^3/uL (1.5-3.5); LYMPHOCYTES % (AUTO) 8.8 %; MEAN CORPUSCULAR HEMOGLOBIN 29.8 pg (27.0-31.0); MEAN CORPUSCULAR HGB CONC 28.7 g/dL (32.0-36.0); MEAN PLATELET VOLUME 9.8 fL (7.9-10.8); MONOCYTES # (AUTO) 0.2 10^3/uL (0.0-1.0); NEUTROPHILS # (AUTO) 2.1 10^3/uL (1.5-6.6); NEUTROPHILS % (AUTO) 74.6 %; PLT - PLATELET COUNT 88 10^3/uL (130-450); RED BLOOD COUNT 2.75 10^6/uL (4.20-5.40); RED CELL DISTRIBUTION WIDTH 19.5 % (12.0-15.0); WHITE BLOOD COUNT 2.9 x10^3/uL (4.8-10.8)
== END 2020-05-24 14:15 | disposition home or self-care (01) ==
LOC: LAB 14:14
PROVIDERS: ATTEND Internal Medicine Medical Oncology
DX: C50.919 Malignant neoplasm of unspecified site of unspecified female breast (principal)
CPT/HCPCS: 36415; 85025

== ENCOUNTER 2020-06-18 10:05 | Outpatient (CLI) | payer MEDICARE ==
[2020-06-18 10:21] LABS: BASOPHILS % (AUTO) 0.3 %; EOSINOPHILS # (AUTO) 0.2 10^3/uL (0.0-0.7); HGB - HEMOGLOBIN 9.1 g/dL (12.0-16.0); LYMPHOCYTES # (AUTO) 0.3 10^3/uL (1.5-3.5); LYMPHOCYTES % (AUTO) 4.5 %; MEAN CORPUSCULAR HEMOGLOBIN 30.5 pg (27.0-31.0); MEAN CORPUSCULAR VOLUME 101.7 fL (81.0-99.0); MEAN PLATELET VOLUME 8.6 fL (7.9-10.8); MONOCYTES # (AUTO) 0.3 10^3/uL (0.0-1.0); MONOCYTES % (AUTO) 5.5 %; NEUTROPHILS # (AUTO) 5.1 10^3/uL (1.5-6.6); NEUTROPHILS % (AUTO) 85.4 %; PLT - PLATELET COUNT 91 10^3/uL (130-450); RED BLOOD COUNT 2.98 10^6/uL (4.20-5.40); RED CELL DISTRIBUTION WIDTH 16.7 % (12.0-15.0)
== END 2020-06-18 10:06 | disposition home or self-care (01) ==
LOC: LAB 10:05
PROVIDERS: ATTEND Internal Medicine Medical Oncology
DX: C50.919 Malignant neoplasm of unspecified site of unspecified female breast (principal)
CPT/HCPCS: 36415; 85025

== ENCOUNTER 2021-03-13 11:04 | Outpatient (CLI) | payer SELFPAY | END 2021-03-13 11:05 | disposition critical access hospital (66) | LOC: EMS 11:04 | DX: R53.1 Weakness (principal) | CPT/HCPCS: A0425; A0429 ==

== ENCOUNTER 2021-03-13 11:24 | Emergency (ER) | payer MEDICARE ==
--- NOTE | 2021-03-13 11:52 | ED Physician Documentation ---
History of Present Illness - Stated complaint Stated Complaint: FEMALE /SOA - Chief complaint Chief Complaint: General - Additonal information Additional information: 50-year-old female presents to the emergency department for evaluation of increasing shortness of air for about 1 week as well as chronic but worsening hematuria. She has an unfortunate history of metastatic breast cancer. Her oncologist is Dr. Bartlett through [facility]. She was recently started on a new chemotherapy regimen on 10 March with every 3-week infusion cycles. Unfortunately due to large tumor burden she developed urinary obstruction and required bilateral ureter stent placements approximately 1 month ago (). She reported that prior to the stents being placed she was showing signs of kidney failure/injury. Since the stents have placed she states that her renal values have improved but then on Sunday she began noticing blood in her urine. She was seen at her urologist office Dr. Martin (urologist) on Sunday03/11/21 and the decision was made to place a Valladares catheter to help prevent obstruction. There was also concerned she may have developed a urinary tract infection and was thus started on cephalexin 500 mg 3 times a day. She states that for about the last week she has gotten progressively short of air with exertion. She denies orthopnea but has noticed that her legs have also gotten much more swollen. On exam she has fairly significant murmur. I asked her if this is a new murmur for her and she says that she was told recently that she had developed one. The cause of it is unclear and has not yet been in vestigated Patient denies cough or chest pain. No hemoptysis. Denies vomiting or diarrhea. Review of Systems Constitutional: denies: Fever, Chills Eyes: reports: Reviewed and negative Ears: reports: Reviewed and negative Nose: reports: Reviewed and negative Throat: reports: Reviewed and negative Cardiac: reports: Pedal edema. denies: Chest pain / pressure, Calf pain Respiratory: reports: Dyspnea. denies: Cough, Hemoptysis, Wheezing GI: reports: Abdominal Pain. denies: Nausea, Vomiting, Diarrhea : reports: Hematuria, Other (valladares catheter in place). 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 - Present Medications Home Medications: Ambulatory Orders Medication Instructions Recorded Confirmed Albuterol Sulfate [Proair Hfa 2 puffs INH Q4H PRN 12/03/17 03/13/21 Inhaler] Cholecalciferol (Vitamin D3) 1,000 units PO DAILY 12/03/17 03/13/21 [Vitamin D3] Multivitamin W/Minerals [Theragran 1 tab PO DAILY 12/03/17 03/13/21 M] Pyridoxine HCl (Vitamin B6) 100 mg PO DAILY 12/03/17 03/13/21 [Vitamin B-6] Gabapentin 300 mg PO TID 11/21/19 03/13/21 lisinopriL [Lisinopril] 40 mg PO DAILY 11/22/19 03/13/21 Ondansetron HCl 8 mg PO Q6HR PRN 03/13/21 03/13/21 Pantoprazole Sodium [Protonix] 20 mg PO DAILY PRN 03/13/21 03/13/21 cephALEXin [Keflex] 500 mg PO TID 03/13/21 03/13/21 - Allergies Allergies/Adverse Reactions: Allergies Allergy/AdvReac Type Severity Reaction Status Date / Time No Known Drug Allergies Allergy Verified 03/13/21 11:34 - Social History Does the pt smoke?: No Smoking Status: Never smoker Does the pt drink ETOH?: No Does the pt have substance abuse?: No - Immunizations Immunizations are current?: Yes - POLST Patient has POLST: No PD ED PE EXPANDED - General General: Alert, No acute distress, Other (obese) - Cardiac Cardiac: Regular Rate, Murmur Present, Radial strong equal, Pedal strong equal, Cap refill < 2 sec - Respiratory Respiratory: Clear to ausultation anthony. No: Distress, Labored - Abdomen Abdomen: Normal Bowel sounds, Tender to palpation (suprapubic without guarding or rebound) - Female Female : Other (Valladares catheter exiting the urethra with a large amount of bloody urine and clots.) - Derm Derm: Normal color, Warm and dry. No: Rash - Extremities Extremities: Pedal edema bilateral (Significant pedal edema/anasarca extending from bilateral feet to mid thighs.). No: Deformity, Tenderness, Right calf TTP/cord, Left calf TTP/cord - Neuro Neuro: Alert and Oriented X 3, CNII-XII intact - GCS Eye Opening: Spontaneous Motor: Obeys Commands Verbal: Oriented Total: 15 Results - Vitals Vitals: Vital Signs - 24 hr 03/13/21 03/13/21 03/13/21 11:34 11:41 14:07 Temperature 37.2 C Heart Rate 107 H 107 H 100 Respiratory 22 20 17 Rate Blood Pressure 104/40 L 97/35 L O2 Saturation 100 100 100 03/13/21 03/13/21 03/13/21 14:56 15:05 15:15 Temperature 37.3 C 37 C 37 C Heart Rate 98 94 96 Respiratory 16 22 18 Rate Blood Pressure 98/36 L 114/46 L 111/44 L O2 Saturation 03/13/21 03/13/21 03/13/21 15:47 16:35 16:36 Temperature 36.9 C 37.1 C Heart Rate 95 93 96 Respiratory 20 18 18 Rate Blood Pressure 102/39 L 121/53 L 112/48 L O2 Saturation 100 100 03/13/21 03/13/21 16:59 17:18 Temperature 37.1 C 37.1 C Heart Rate 100 97 Respiratory 18 18 Rate Blood Pressure 121/49 L 117/48 L O2 Saturation Oxygen O2 Source Room air - EKG (time done) 1154 Rate: Rate (enter#) (102) Rhythm: Sinus tachycardia [place]: Normal Intervals: Normal RI QRS: Normal Ischemia: ST elevation c/w repol Compare to prior EKG: Old EKG unavailable Computer interpretation: Agree with computer - Labs Labs: Laboratory Tests 03/13/21 03/13/21 03/13/21 11:55 11:55 11:55 WBC 5.7 RBC 1.14 L Hgb 3.5 L* Hct 11.4 L* MCV 100.0 H MCH 30.7 MCHC 30.7 L RDW 22.4 H Plt Count 83 L MPV 9.9 Neut # (Auto) 5.2 Lymph # (Auto) 0.1 L Aiken # (Auto) 0.4 Eos # (Auto) 0.0 Baso # (Auto) 0.0 Absolute Nucleated RBC 0.00 Nucleated RBC % 0.0 Manual Slide Review Indicated RBC Morph Micro Appear 4+ ANISOCYTOSIS PT INR Sodium 135 Potassium 4.0 Chloride 109 Carbon Dioxide 12 L* Anion Gap 14.0 H BUN 76 H Creatinine 5.7 H Estimated GFR (MDRD) 8 L Glucose 180 H Lactic Acid Calcium 7.7 L Total Bilirubin 1.0 AST 16 ALT 11 Alkaline Phosphatase 84 B-Natriuretic Peptide 61 Total Protein 4.5 L Albumin 2.5 L Globulin 2.0 L Albumin/Globulin Ratio 1.3 Lipase 22 Urine Color Urine Clarity Urine pH Ur Specific [place] Urine Protein Urine Glucose (UA) Urine Ketones Urine Occult Blood Urine Nitrite Urine Bilirubin Urine Urobilinogen Ur Leukocyte Esterase Urine RBC Urine WBC Ur Squamous Epith Cells Amorphous Sediment Urine Bacteria Urine Mucus Ur Microscopic Review Urine Culture Comments Nasal Adenovirus (PCR) Nasal B. parapertussis DNA (PCR) Nasal Coronavir 229E PCR Nasal Coronavir HKU1 PCR Nasal Coronavir NL63 PCR Nasal Coronavir OC43 PCR Nasal Enterovir/Rhinovir PCR Nasal Influenza B PCR Nasal Influenza A PCR Nasal Parainfluen 1 PCR Nasal Parainfluen 2 PCR Nasal Parainfluen 3 PCR Nasal Parainfluen 4 PCR Nasal RSV (PCR) Nasal B.pertussis DNA PCR Nasal C.pneumoniae (PCR) Shan Human Metapneumo PCR Nasal M.pneumoniae (PCR) Nasal SARS-CoV-2 (PCR) Blood Type Blood Type Recheck Antibody Screen Crossmatch IS Only 03/13/21 03/13/21 03/13/21 11:55 11:55 13:44 WBC RBC Hgb Hct MCV MCH MCHC RDW Plt Count MPV Neut # (Auto) Lymph # (Auto) Aiken # (Auto) Eos # (Auto) Baso # (Auto) Absolute Nucleated RBC Nucleated RBC % Manual Slide Review RBC Morph Micro Appear PT 16.8 H INR 1.5 H Sodium Potassium Chloride Carbon Dioxide Anion Gap BUN Creatinine Estimated GFR (MDRD) Glucose Lactic Acid 1.8 Calcium Total Bilirubin AST ALT Alkaline Phosphatase B-Natriuretic Peptide Total Protein Albumin Globulin Albumin/Globulin Ratio Lipase Urine Color Urine Clarity Urine pH Ur Specific [place] Urine Protein Urine Glucose (UA) Urine Ketones Urine Occult Blood Urine Nitrite Urine Bilirubin Urine Urobilinogen Ur Leukocyte Esterase Urine RBC Urine WBC Ur Squamous Epith Cells Amorphous Sediment Urine Bacteria Urine Mucus Ur Microscopic Review Urine Culture Comments Nasal Adenovirus (PCR) NOT DETECTED Nasal B. parapertussis DNA (PCR) NOT DETECTED Nasal Coronavir 229E PCR NOT DETECTED Nasal Coronavir HKU1 PCR NOT DETECTED Nasal Coronavir NL63 PCR NOT DETECTED Nasal Coronavir OC43 PCR NOT DETECTED Nasal Enterovir/Rhinovir PCR NOT DETECTED Nasal Influenza B PCR NOT DETECTED Nasal Influenza A PCR NOT DETECTED Nasal Parainfluen 1 PCR NOT DETECTED Nasal Parainfluen 2 PCR NOT DETECTED Nasal Parainfluen 3 PCR NOT DETECTED Nasal Parainfluen 4 PCR NOT DETECTED Nasal RSV (PCR) NOT DETECTED Nasal B.pertussis DNA PCR NOT DETECTED Nasal C.pneumoniae (PCR) NOT DETECTED Shan Human Metapneumo PCR NOT DETECTED Nasal M.pneumoniae (PCR) NOT DETECTED Nasal SARS-CoV-2 (PCR) NOT DETECTED Blood Type Blood Type Recheck Antibody Screen Crossmatch IS Only 03/13/21 03/13/21 03/13/21 13:50 14:28 14:43 WBC RBC Hgb Hct MCV MCH MCHC RDW Plt Count MPV Neut # (Auto) Lymph # (Auto) Aiken # (Auto) Eos # (Auto) Baso # (Auto) Absolute Nucleated RBC Nucleated RBC % Manual Slide Review RBC Morph Micro Appear PT INR Sodium Potassium Chloride Carbon Dioxide Anion Gap BUN Creatinine Estimated GFR (MDRD) Glucose Lactic Acid Calcium Total Bilirubin AST ALT Alkaline Phosphatase B-Natriuretic Peptide Total Protein Albumin Globulin Albumin/Globulin Ratio Lipase Urine Color RED/BLOODY Urine Clarity CLOUDY Urine pH 6.5 Ur Specific [place] 1.020 Urine Protein >=300 H Urine Glucose (UA) NEGATIVE Urine Ketones NEGATIVE Urine Occult Blood LARGE H Urine Nitrite POSITIVE H Urine Bilirubin NEGATIVE Urine Urobilinogen 1 (NORMAL) Ur Leukocyte Esterase SMALL H Urine RBC TNTC H Urine WBC 4-5 Ur Squamous Epith Cells FEW Squamous Amorphous Sediment Few Urine Bacteria Moderate H Urine Mucus Few Strands Ur Microscopic Review INDICATED Urine Culture Comments INDICATED Nasal Adenovirus (PCR) Nasal B. parapertussis DNA (PCR) Nasal Coronavir 229E PCR Nasal Coronavir HKU1 PCR Nasal Coronavir NL63 PCR Nasal Coronavir OC43 PCR Nasal Enterovir/Rhinovir PCR Nasal Influenza B PCR Nasal Influenza A PCR Nasal Parainfluen 1 PCR Nasal Parainfluen 2 PCR Nasal Parainfluen 3 PCR Nasal Parainfluen 4 PCR Nasal RSV (PCR) Nasal B.pertussis DNA PCR Nasal C.pneumoniae (PCR) Shan Human Metapneumo PCR Nasal M.pneumoniae (PCR) Nasal SARS-CoV-2 (PCR) Blood Type O POSITIVE Blood Type Recheck O POSITIVE Antibody Screen NEGATIVE Crossmatch IS Only See Detail 03/13/21 17:35 WBC 4.9 RBC 1.41 L Hgb 4.3 L* Hct 13.7 L* MCV 97.2 MCH 30.5 MCHC 31.4 L RDW 19.9 H Plt Count 80 L MPV 9.9 Neut # (Auto) Lymph # (Auto) Aiken # (Auto) Eos # (Auto) Baso # (Auto) Absolute Nucleated RBC Nucleated RBC % Manual Slide Review RBC Morph Micro Appear PT INR Sodium Potassium Chloride Carbon Dioxide Anion Gap BUN Creatinine Estimated GFR (MDRD) Glucose Lactic Acid Calcium Total Bilirubin AST ALT Alkaline Phosphatase B-Natriuretic Peptide Total Protein Albumin Globulin Albumin/Globulin Ratio Lipase Urine Color Urine Clarity Urine pH Ur Specific [place] Urine Protein Urine Glucose (UA) Urine Ketones Urine Occult Blood Urine Nitrite Urine Bilirubin Urine Urobilinogen Ur Leukocyte Esterase Urine RBC Urine WBC Ur Squamous Epith Cells Amorphous Sediment Urine Bacteria Urine Mucus Ur Microscopic Review Urine Culture Comments Nasal Adenovirus (PCR) Nasal B. parapertussis DNA (PCR) Nasal Coronavir 229E PCR Nasal Coronavir HKU1 PCR Nasal Coronavir NL63 PCR Nasal Coronavir OC43 PCR Nasal Enterovir/Rhinovir PCR Nasal Influenza B PCR Nasal Influenza A PCR Nasal Parainfluen 1 PCR Nasal Parainfluen 2 PCR Nasal Parainfluen 3 PCR Nasal Parainfluen 4 PCR Nasal RSV (PCR) Nasal B.pertussis DNA PCR Nasal C.pneumoniae (PCR) Shan Human Metapneumo PCR Nasal M.pneumoniae (PCR) Nasal SARS-CoV-2 (PCR) Blood Type Blood Type Recheck Antibody Screen Crossmatch IS Only - Rads (name of study) CXR Radiology: Final report received (Nonspecific increased opacity in the right lung base which could be due to overlying breast soft tissue although an acute infection could cause similar appearance.) CT abd/pelv w/o Radiology: Final report received (Moderate to large right-sided pleural effusion. Moderate to severe bilateral hydronephrosis with bilateral ureter stents. Blood can be seen in the urinary bladder. Mild ascites. Anasarca is seen. A left adnexal cyst is again seen which is slightly increased in size compared to 2017.) PD MEDICAL DECISION MAKING - ED course Complexity details: reviewed results ED course: 50-year-old female who has a history of metastatic breast cancer currently undergoing active chemotherapy presents to the emergency department with worsening shortness of breath over the last week as well as hematuria. She unfortunately has a history of obstructive uropathy and had bilateral ureter stents placed 4 to 6 weeks ago at [facility]. She was seen by her urologist 3 days ago for hematuria and a Valladares catheter was placed. However despite this she is continued to produce a little urine and has gotten progressively short of air with now development of anasarca. I have initiated 1 unit PRBC infusion Unfortunately screening labs reveal a fairly severe anemia with a hemoglobin of 3.5. Other worrisome findings include decreased CO2 of 12 as well as elevated BUN and creatinine. A noncontrast CT was completed and it does show fairly severe bilateral hydronephrosis as well as a right pleural effusion. There is moderate amount of blood in her urinary bladder. Nursing staff did change out the Valladares catheter to a larger size and attempted irrigation with marginal success. Unfortunately this 50-year-old lady with metastatic breast cancer worsening obstructive uropathy and now pleural effusion and shortness of air will require transfer to higher level of care with services that can manage chemotherapy acute kidney injury as well as urological services. At [address] I have spoken [address] Dr[address] Ash and oncologist as well as the accepting physician at [facility]. Patient will be transferred there via ALS. appropriate [facility]BR paperwork completed. 1535: I have had to give reprot to Dr. Wright an Oncologist in the ICU as pt will require ICU management at based on sever anemia. PRBC unit infusing. Will attempt 2 units PRBC before departure 1755: First unit PRBCs has been infused. Repeat hemoglobin 4.3. Hematocrit 13. 7. Second unit has been ordered and will be infused in route to [facility]. - Critical Care Time(min): 30 Time Includes: Review records, Reassess patient, Document care, Coordinate care Data interpretation: Labs, CXR, See progress note Departure - Departure Disposition: 02 Transfer Acute Care Hosp Clinical Impression: Bilateral hydronephrosis, Metastatic breast cancer, Obstructive uropathy, Pleural effusion, Anasarca associated with disorder of kidney, Murmur, cardiac, Shortness of breath, History of ureter stent Anemia Qualifiers: Anemia type: other cause Other causes of anemia: other cause, not classified Qualified Code(s): D64.89 - Other specified anemias
[2021-03-13 12:04] LABS: BASOPHILS % (AUTO) 0.2 %; LYMPHOCYTES # (AUTO) 0.1 10^3/uL (1.5-3.5); LYMPHOCYTES % (AUTO) 1.6 %; MEAN CORPUSCULAR HEMOGLOBIN 30.7 pg (27.0-31.0); MEAN CORPUSCULAR HGB CONC 30.7 g/dL (32.0-36.0); MEAN PLATELET VOLUME 9.9 fL (7.9-10.8); MONOCYTES # (AUTO) 0.4 10^3/uL (0.0-1.0); MONOCYTES % (AUTO) 6.3 %; NEUTROPHILS # (AUTO) 5.2 10^3/uL (1.5-6.6); NEUTROPHILS % (AUTO) 90.7 %; PLT - PLATELET COUNT 83 10^3/uL (130-450); RED BLOOD COUNT 1.14 10^6/uL (4.20-5.40); RED CELL DISTRIBUTION WIDTH 22.4 % (12.0-15.0); WHITE BLOOD COUNT 5.7 x10^3/uL (4.8-10.8)
[2021-03-13 12:09] LABS: HGB - HEMOGLOBIN 3.5 g/dL (12.0-16.0)
[2021-03-13 12:10] LABS: HCT - HEMATOCRIT 11.4 % (37.0-47.0); SLIDE REVIEW? Indicated
--- NOTE | 2021-03-13 12:14 | XRAY Report ---
PROCEDURE: Chest 1 View X-Ray INDICATIONS: SOA TECHNIQUE: One view of the chest was acquired. COMPARISON: CT chest 07/23/2021 FINDINGS: Surgical changes and devices: Left chest wall central venous port catheter terminates near the cavoat rial junction. Lungs and pleura: No pleural effusions or pneumothorax. Increased airspace opacity in the right lung base, nonspecific. Mediastinum: Mediastinal contours appear normal. Heart size is normal. Bones and chest wall: No suspicious bony lesions. Overlying soft tissues appear unremarkable. IMPRESSION: Nonspecific increased opacity in the right lung base could be due to overlying breast soft tissue alt demetrice an acute infection could cause similar appearance. Reviewed by: Karthikeyan Vasques MD on 03/13/2021 12:12 PM PDT Approved by: Karthikeyan Vasques MD on 03/13/2021 12:12 PM PDT Station ID: [id number]
[2021-03-13 12:15] LABS: INR 1.5 (0.8-1.2); PT - PROTHROMBIN TIME 16.8 secs (9.9-12.6)
[2021-03-13 12:28] LABS: ALBUMIN 2.5 g/dL (3.2-5.5); ALBUMIN/GLOBULIN RATIO 1.3 (1.0-2.2); CALCIUM 7.7 mg/dL (8.5-10.3); CREATININE 5.7 mg/dL (0.4-1.0); TOTAL PROTEIN 4.5 g/dL (6.7-8.2)
[2021-03-13 13:29] LABS: RBC MORPHOLOGY (MULTIPLE) 4+ ANISOCYTOSIS (NORMAL)
--- NOTE | 2021-03-13 13:31 | CT Report ---
PROCEDURE: Abdomen/Pelvis WO INDICATIONS: hematuria, short of breath, leg swelling. hx of metastatic ca TECHNIQUE: Noncontrast 5 mm thick sections acquired from the diaphragms to the symphysis. 5 mm coronal and sagi ttal reformats were then performed. For radiation dose reduction, the following was used: automated exposure control, adjustment of mA and/or kV according to patient size. COMPARISON: None. FINDINGS: Image quality: There is artifact associated with the metallic hardware. ABDOMEN: Lung bases: Right mastectomy change is seen. There is a moderate to large right-sided pleural effusio n. Heart size is normal. Solid organs: Liver demonstrates normal size, without focal lesions. The spleen is enlarged, measurin g 18.2 cm AP. Gallbladder demonstrates layering sludge or gallstones. Pancreas is normal in contours. No adrenal nodules. Bilateral ureteral stents are seen. There is moderate to prominent bilateral hydronephrosis. The kidn eys are atrophic. No kidney stones are seen. Peritoneum and bowel: Unenhanced bowel loops demonstrate normal wall thickness and caliber. No free air. There is mild ascites seen. Nodes and vessels: No retroperitoneal or mesenteric adenopathy by size criteria. Aorta and inferior vena cava are normal in caliber. Miscellaneous: No ventral hernias. There is generalized anasarca. PELVIS: Genitourinary: A Sellers catheter is seen. There is apparent blood seen within the urinary bladder, layton suring 85 Hounsfield units. Miscellaneous: No inguinal hernias or adenopathy. Within the left lower quadrant of the abdomen, th ere is an ovoid fluid collection seen that measures 11.5 x 9 cm in greatest axial dimension, with mil d rim thickening. Bones: No suspicious bony lesions. A left hip arthroplasty is seen, with associated streak artifact. No acute vertebral body compression fractures. There is a mild central compression deformity seen i nvolving the superior endplate of L3. Several chronic appearing Schmorl's nodes are seen. Moderate de xtroconvex scoliotic curvature is seen. IMPRESSION: Moderate to large right-sided pleural effusion. Moderate to severe bilateral hydronephrosis, with bilateral ureteral stents. Blood can be seen within the urinary bladder. There is mild ascites. Anasarca is seen. A left adnexal cyst is again seen, which is slightly increased in size compared to 2017. Incidental note is made of: Right mastectomy change Layering gallstones versus sludge Splenomegaly Left hip arthroplasty hardware, with associated streak artifact Sellers catheter Moderate dextroconvex scoliosis Chronic-appearing L3 compression deformity Several Schmorl's nodes Reviewed by: Ramu Cuevas MD on 03/13/2021 12:30 PM AKDT Approved by: Ramu Cuevas MD on 03/13/2021 12:30 PM AKDT Station ID: [id number]
[2021-03-13 14:38] LABS: B. PARAPERTUSSIS- RESP PCR PAN NOT DETECTED; B. PERTUSSIS- RESP PCR PANEL NOT DETECTED; C. PNEUMONIAE- RESP PCR PANEL NOT DETECTED; CORONAVIRUS 229E-RESP PCR NOT DETECTED; CORONAVIRUS HKU1-RESP PCR NOT DETECTED; CORONAVIRUS NL63-RESP PCR NOT DETECTED; CORONAVIRUS OC43-RESP PCR NOT DETECTED; HUMAN METAPNEUMOVIRUS NOT DETECTED; INFLUENZA A- RESP PCR PANEL NOT DETECTED; INFLUENZA B - RESP PCR PANEL NOT DETECTED; M. PNEUMONIAE- RESP PCR PANEL NOT DETECTED; PARAINFLUENZA VIRUS 1 NOT DETECTED; PARAINFLUENZA VIRUS 2 NOT DETECTED; PARAINFLUENZA VIRUS 3 NOT DETECTED; PARAINFLUENZA VIRUS 4 NOT DETECTED; RHINOVIRUS/ENTEROVIRUS NOT DETECTED; RSV- RESP PCR PANEL NOT DETECTED; SARS-CoV-2 -RESP PCR PANEL NOT DETECTED
[2021-03-13 15:01] LABS: BILIRUBIN,URINE NEGATIVE (NEGATIVE); GLUCOSE, URINE (UA) NEGATIVE (NEGATIVE); KETONES,URINE (UA) NEGATIVE (NEGATIVE); LEUKOCYTE ESTERASE, URINE SMALL (NEGATIVE); NITRITE,URINE POSITIVE (NEGATIVE); OCCULT BLOOD,URINE LARGE (NEGATIVE); PH,URINE 6.5 PH (5.0-7.5); PROTEIN,URINE >=300 mg/dL (NEGATIVE); UROBILINOGEN,URINE 1 (NORMAL) E.U./dL (NORMAL)
[2021-03-13 15:02] LABS: AMORPHOUS SEDIMENT,UR Few /LPF; BACTERIA,URINE Moderate /HPF (None Seen); CLARITY,URINE CLOUDY (CLEAR); MUCUS,URINE Few Strands; RBC,URINE TNTC /HPF (0-5); SQUAMOUS EPITHELIAL CELL,UR FEW Squamous (<= Few)
[2021-03-13] MEDS ORDERED: oxyCODONE 5 MG TABLET PO STA (16:54)
[2021-03-13 17:45] LABS: MEAN CORPUSCULAR HEMOGLOBIN 30.5 pg (27.0-31.0); MEAN CORPUSCULAR HGB CONC 31.4 g/dL (32.0-36.0); MEAN CORPUSCULAR VOLUME 97.2 fL (81.0-99.0); MEAN PLATELET VOLUME 9.9 fL (7.9-10.8); RED BLOOD COUNT 1.41 10^6/uL (4.20-5.40); RED CELL DISTRIBUTION WIDTH 19.9 % (12.0-15.0); WHITE BLOOD COUNT 4.9 x10^3/uL (4.8-10.8)
[2021-03-13 17:51] LABS: HCT - HEMATOCRIT 13.7 % (37.0-47.0); HGB - HEMOGLOBIN 4.3 g/dL (12.0-16.0)
[2021-03-13 19:00] VITALS: BP 129/49
== END 2021-03-13 19:05 | disposition short-term general hospital (02) ==
LOC: EDUNIT# → ED 11:24
DX: N17.9 Acute kidney failure, unspecified (principal); N13.30 Unspecified hydronephrosis; J90 Pleural effusion, not elsewhere classified; D64.89 Other specified anemias; R60.1 Generalized edema; C50.919 Malignant neoplasm of unspecified site of unspecified female breast; C79.9 Secondary malignant neoplasm of unspecified site; R31.9 Hematuria, unspecified; Z96.0 Presence of urogenital implants; R00.0 Tachycardia, unspecified; R01.1 Cardiac murmur, unspecified; Z20.822 Contact with and (suspected) exposure to COVID-19; I10 Essential (primary) hypertension; E11.9 Type 2 diabetes mellitus without complications
CPT/HCPCS: 0202U; 36415; 36430; 51702; 51798; 71045; 74176; 80053; 81001; 83605; 83690; 83880; 85025; 85027; 85610; 86850; 86900; 86901; 86920; 87077; 87086; 87181; 93005; 99285; 99291; A9270; P9016; P9040; 81003

== ENCOUNTER 2021-03-13 19:09 | Outpatient (CLI) | payer SELFPAY | END 2021-03-13 19:10 | disposition short-term general hospital (02) | LOC: EMS 19:09 | PROVIDERS: ATTEND Registered Nurse | DX: N17.9 Acute kidney failure, unspecified (principal); J90 Pleural effusion, not elsewhere classified; N13.9 Obstructive and reflux uropathy, unspecified; C50.919 Malignant neoplasm of unspecified site of unspecified female breast; C79.9 Secondary malignant neoplasm of unspecified site | CPT/HCPCS: A0425; A0426 ==